=== PATIENT | female | born 1945 | race Caucasian/White ===

== ENCOUNTER 2023-02-14 14:26 | Emergency (ER) | payer MEDICARE, SELFPAY ==
[2023-02-14 14:31] VITALS: BP 175/62; PULSE 70; RESP 16; TEMP 36.6; O2SAT 92; BMI 23.3
--- NOTE | 2023-02-14 14:46 | ED.GENADULT ---
HPI - General Adult General Time Seen by Provider: 14:57 <Marielle Sandoval - Last Filed: 02/14/23 17:58> Date Seen: 02/14/23 <Marielle Jaime - Last Filed: 02/14/23 17:58> Chief complaint: Back Injury/Pain <Marielle [place] - Last Filed: 02/14/23 17:58> Stated complaint: Back pain <Marielle Jaime - Last Filed: 02/14/23 17:58> Time Seen by Provider: 02/14/23 14:48 <Marielle Jaime - Last Filed: 02/14/23 17:58> Source: patient and family <Marielle Jaime - Last Filed: 02/14/23 17:58> Mode of arrival: ambulatory <Marielle [place] - Last Filed: 02/14/23 17:58> Limitations: no limitations <Marielle [place] - Last Filed: 02/14/23 17:58> History of Present Illness HPI narrative: 77 yo female w/ a hx of osteopenia presents with 2 days of diffuse lower back pain that started the morning after she lifted a 50lb bag of salt. The low back pain is worst with movement, at rest currently it is a 2/10. Denies numbness or tingling of her legs, no weakness noted. No urinary or stool incontinence. She took 1500mg Tylenol and 200mg ibuprofen for the pain with minimal relief. Denies chest pain or palpitations. Denies burning or blood with urination. Her last BM was 2 hours ago and was of normal consistency without blood. No recent illnesses, fever, or chills. Note chronic baseline shortness of breath that she is getting evaluated by her PCP on Wednesday02/16/23, no change of breathing today. No recent falls or other trauma. No hx of prior back injuries. She is on alendronate for her osteopenia. <Marielle Jaime - Last Filed: 02/14/23 17:58> Related Data Allergies/adverse reactions: Allergies Allergy/AdvReac Type Severity Reaction Status Date / Time erythromycin base Allergy Severe Vomiting Verified 02/11/23 11:24 penicillin G Allergy Severe Convulsions Verified 02/11/23 11:24 amlodipine Allergy Intermediate Flushing Verified 02/11/23 11:25 and Edema hydrochlorothiazide Allergy Intermediate Facial Verified 02/11/23 11:25 Flushing and Edema lisinopril Allergy Intermediate Facial Verified 02/11/23 11:27 Flushing and Edema Sulfa (Sulfonamide Allergy Intermediate Hives Verified 02/11/23 11:24 Antibiotics) sulfamethoxazole Allergy Intermediate Rash Verified 02/11/23 11:24 tetracycline Allergy Intermediate Rash Verified 02/11/23 11:24 <Marielle [place] - Last Filed: 02/14/23 17:58> Review of Systems Status of ROS: Reports: 10 or more systems reviewed and unremarkable except as noted in History and below <Marielle [place] - Last Filed: 02/14/23 17:58> [facility] Medical History: Medical History History of adenomatous polyp of colon (2001) ?Z86.010 - Personal history of colonic polyps (ICD-10) History of benign breast biopsy ?Z98.890 - Other specified postprocedural states (ICD-10) Hypercholesterolemia ?E78.00 - Pure hypercholesterolemia, unspecified (ICD-10) Osteoporosis ?M81.0 - Age-related osteoporosis without current pathological fracture (ICD-10) Essential hypertension ?I10 - Essential (primary) hypertension (ICD-10) < - Last Filed: 02/14/23 17:58> Surgical History: Surgical History History of colonoscopy (11/25/11) ?Z98.890 - Other specified postprocedural states (ICD-10) History of section ?Z98.891 - History of uterine scar from previous surgery (ICD-10) History of appendectomy ?Z90.49 - Acquired absence of other specified parts of digestive tract (ICD-10) <Marielle Jaime - Last Filed: 02/14/23 17:58> Family History: Family History Mother COPD (chronic obstructive pulmonary disease) CHF (congestive heart failure) Dementia Father Leukemia High cholesterol Tachycardia Maternal Grandfather Diabetes Brother Retinal dot hemorrhage <Marielle [place] Last Filed: 02/14/23 17:58> Social History: Social History Smoking Status: Never smoker Do you use any of these nicotine containing products: None Second hand tobacco smoke exposure: Yes How often do you have a drink containing alcohol: monthly or less How many standard drinks containing alcohol do you have on a typical day: 1 or 2 How often do you have six or more drinks on one occasion: Never AUDIT-C Alcohol total score: 1 Non-prescribed substance use: denies use service: No <Marielle Pollackan Last Filed: 02/14/23 17:58> Exam Narrative: Exam Narrative: General: Pt is seated upright in bed in NAD. HEENT: PEERL Cardiac: Heart RRR, no M/R/G Resp: Lungs CTAB Neuro: 5/5 strength b/l LE, sensation intact throughout b/l LE MSK: No thoracic midline tenderness. There is diffuse tenderness of the lower back, most notably in the area b/l lateral to L2-L5. Paraspinal mucles hypertonic b/l. Skin: No rashes or ecchymosis noted <Marielle [place] Last Filed: 02/14/23 17:58> Const: Vital Signs, click to edit/add: Vital Signs - 24 hr 02/14/23 14:31 Temperature 97.8 F Pulse Rate [Pulse Oximeter] 70 Respiratory Rate 16 Blood Pressure [Ri ght Upper Arm] 175/62 H Pulse Oximetry 92 Oxygen Delivery Me thod Room Air <Marielle [place] Last Filed: 02/14/23 17:58> Vital Signs, click to edit/add: Vital Signs - 24 hr 02/14/23 14:31 Temperature 97.8 F Pulse Rate [Pulse Oximeter] 70 Respiratory Rate 16 Blood Pressure [Ri ght Upper Arm] 175/62 H Pulse Oximetry 92 Oxygen Delivery Me thod Room Air <Jada King MD - Last Filed: 02/14/23 18:02> Documenting provider has reviewed patient's vital signs: yes <Jada King MD - Last Filed: 02/14/23 18:02> Course Course ED Course: DDx inludes but is not limited to herniated disc, osteoporotic fracture of lumbar spine, lumbar stenosis, DDD, muscle spasm, muscle strain, pyelonephritis, cauda equina, and conus medullaris <[facility] Last Filed: 02/14/23 17:58> Vital Signs Vital signs: Initial Vital Signs Temperature 97.8 F 02/14/23 14:31 Temperature Source Temporal Artery Scan 02/14/23 14:31 Pulse Rate 70 02/14/23 14:31 Pulse Rhythm Regular 02/14/23 14:31 Respiratory Rate 16 02/14/23 14:31 Blood Pressure 175/62 H 02/14/23 14:31 Blood Pressure Mean 99 02/14/23 14:31 Blood Pressure Position Supine 02/14/23 14:31 Pulse Oximetry 92 02/14/23 14:31 Oxygen Delivery Method Room Air 02/14/23 14:31 Vital Signs Temperature 97.8 F 02/14/23 14:31 Pulse Rate 70 02/14/23 14:31 Respiratory Rate 16 02/14/23 14:31 Blood Pressure 175/62 H 02/14/23 14:31 Pulse Oximetry 92 02/14/23 14:31 Oxygen Delivery Method Room Air 02/14/23 14:31 Temperature 97.8 F 02/14/23 14:31 Pulse Rate 70 02/14/23 14:31 Respiratory Rate 16 02/14/23 14:31 Blood Pressure 175/62 H 02/14/23 14:31 Pulse Oximetry 92 02/14/23 14:31 Oxygen Delivery Method Room Air 02/14/23 14:31 [facility] Last Filed: 02/14/23 17:58> Initial Vital Signs Temperature 97.8 F 02/14/23 14:31 Temperature Source Temporal Artery Scan 02/14/23 14:31 Pulse Rate 70 02/14/23 14:31 Pulse Rhythm Regular 02/14/23 14:31 Respiratory Rate 16 02/14/23 14:31 Blood Pressure 175/62 H 02/14/23 14:31 Blood Pressure Mean 99 02/14/23 14:31 Blood Pressure Position Supine 02/14/23 14:31 Pulse Oximetry 92 02/14/23 14:31 Oxygen Delivery Method Room Air 02/14/23 14:31 Vital Signs Temperature 97.8 F 02/14/23 14:31 Pulse Rate 70 02/14/23 14:31 Respiratory Rate 16 02/14/23 14:31 Blood Pressure 175/62 H 02/14/23 14:31 Pulse Oximetry 92 02/14/23 14:31 Oxygen Delivery Method Room Air 02/14/23 14:31 Temperature 97.8 F 02/14/23 14:31 Pulse Rate 70 02/14/23 14:31 Respiratory Rate 16 02/14/23 14:31 Blood Pressure 175/62 H 02/14/23 14:31 Pulse Oximetry 92 02/14/23 14:31 Oxygen Delivery Method Room Air 02/14/23 14:31 <Jada King MD - Last Filed: 02/14/23 18:02> Medical Decision Making MDM Narrative Medical decision making narrative: 1-Lower Back Strain-Low back pain worse with movement without radiation into the legs or concerning sx of urinary or bowel incontinence or weakness. Likely muscle strain related to carrying 50lb bag. XR without evidence for fracture. Recommend Aleve or Ibuprofen prn, may also take tylenol but do NOT exceed 1000mg q6h. May also take Flexeril 5mg BID prn, do not drive after taking this or operate heavy machinery. 2-Discharge home, pt understands and agrees to the plan. She will follow up with PT for strengthening. She will return if she experiences numbness or tingling in her legs, weakness or incontinence of bowel or bladder. < Last Filed: 02/14/23 17:58> Medical Records Medical records reviewed: Yes I reviewed the patient's medical records < Last Filed: 02/14/23 17:58> Imaging Data XR Pelvis 1-View: Attestation: I have reviewed the pertinent imaging results. < Last Filed: 02/14/23 17:58> My impression: No acute pelvic fracture noted < - Last Filed: 02/14/23 17:58> Radiologist's impression: No acute findings. < Last Filed: 02/14/23 17:58> XR lumbar spine 2-3 V: My impression: No evidence for lumbar fracture, mild anterolisthesis of L4 on L5 noted. < Last Filed: 02/14/23 17:58> Radiologist's impression: 1. No acute findings. 2. Mild anterolisthesis of L4 on L5. 3. Spondylotic changes greatest at L5-S1. < Last Filed: 02/14/23 17:58> Discharge Plan Discharge Clinical Impression: Strain of lumbar region Qualifiers: Encounter type: initial encounter Qualified Code(s): S39.012A - Strain of muscle, fascia and tendon of lower back, initial encounter <Marielle Sandoval - Last Filed: 02/14/23 17:58> Patient Disposition: Home, Self-Care <Marielle Sandoval - Last Filed: 02/14/23 17:58> Condition: Stable <Marielle Sandoval - Last Filed: 02/14/23 17:58> Additional Instructions: Flexeril 5mg or 1/2 tab q8-12h prn, may use ibuprofen q8h prn or Aleve 600 mg BID prn. May also use tylenol, do not exceed 1000 mg q6h prn. May apply ice for the first 72 hours, after that may apply heat. Recommend following up with PT for restrengthening exercises. Please return to the ED if you experience numbness/tingling of the legs, muscle weakness, bowel or bladder incontinence. <Marielle Sandoval - Last Filed: 02/14/23 17:58> Activity Level: No Restrictions <Marielle Sandoval - Last Filed: 02/14/23 17:58> No Restrictions <Jada King MD - Last Filed: 02/14/23 18:02> Discharge Diet: Regular <Marielle Sandoval - Last Filed: 02/14/23 17:58> Regular <Jada King MD - Last Filed: 02/14/23 18:02> Follow Up/Referrals: Anni Gaviria MD [Primary Care Provider] - <Marielle Sandoval - Last Filed: 02/14/23 17:58> Stand Alone Forms: MyHealth Info Instructions <Marielle Sandoval - Last Filed: 02/14/23 17:58>
--- NOTE | 2023-02-14 15:09 | CRLHL7_ITS ---
For Patients: As a result of the Century Cures Act, medical imaging exams and procedure reports are released immediately into your electronic medical record. You may view this report before your referring provider. If you have questions, please contact your health care provider. INDICATION: Back pain. TECHNIQUE: Lumbar spine 3 views. COMPARISON: None. FINDINGS: There are 5 lumbar type vertebral bodies. Mild anterolisthesis of L4 on L5. No acute fracture identified. Vertebral body heights are well maintained. Spondylotic changes including minimal endplate spurring, lower lumbar facet arthropathy, and disc space narrowing at L5-S1. The sacroiliac joints are normal in appearance. Soft tissues are unremarkable. IMPRESSION: 1. No acute findings. 2. Mild anterolisthesis of L4 on L5. 3. Spondylotic changes greatest at L5-S1. Dictated by Mariposa Bundy MD @ 02/14/2023 4:10:35 PM (Electronically Signed)
--- NOTE | 2023-02-14 15:11 | CRLHL7_ITS ---
For Patients: As a result of the Cures Act, medical imaging exams and procedure reports are released immediately into your electronic medical record. You may view this report before your referring provider. If you have questions, please contact your health care provider. INDICATION: Back pain. TECHNIQUE: AP pelvis. COMPARISON: None. FINDINGS: No acute fracture identified. The hips appear normally aligned with preserved joint spaces. The sacroiliac joints are normal in appearance. Degenerative changes of the lower lumbar spine. Soft tissues are unremarkable. IMPRESSION: No acute findings. Dictated by Mariposa Bundy MD @ 02/14/2023 4:12:09 PM (Electronically Signed)
== END 2023-02-14 17:08 | disposition home or self-care (01) ==
PROVIDERS: Emergency Provider Family Medicine; PCP Family Medicine
DX: S39.012A Strain of muscle, fascia and tendon of lower back, initial encounter (principal)
CPT/HCPCS: 72100; 72170; 99283; 99284

== ENCOUNTER 2023-03-01 10:45 | Outpatient (RCR) | payer MEDICARE, SELFPAY ==
--- NOTE | 2023-02-15 13:53 | PT.OPEX ---
[facility] Outpatient Eval Start: 02/15/23 12:33 Freq: Status: Active Protocol: Document 02/15/23 12:34 CRP (Rec: 02/15/23 13:48 CRP [id number]) E-signed By Baldo [facility] Outpatient Evaluation Insurance Information Recert Due Date 05/16/23 Insurance Name Medicare B Medical Diagnosis Acute LBP Treating Diagnosis LBP Back stiffness Referring MD Dr King Subjective Subjective Wednesday morning could not even get up out of bed without severe pain. Thinks it was from lifting salt bags on Wednesday. Pain was low back on both sides. No pain into legs . No numbness or tingling. Pt reports that Wednesday she took it easy. Wednesday morning was again really painful and she did go into the ER. Had Xray that was negative. Was prescribed muscle relaxer and is taking Aleve. Pt notes that by the end of Wednesday her pain was about 3/10 and currently 2/10. SItting in a soft chair can cause problems. Sitting in supportive chair is fine. Walking is the best. SLeep can be painful. Bending and lifting cause the most pain. Has had minor back soreness in the past but usually would clear up. Pain Comments 2/10 Current Work Status Retired Objective Range of Motion Trunk ROM Flex WNL Ext mod dec Bilat SB min dec Rotation WNL bilat Hip ROM WNL bilat Strength MMT Myotomes WNL TrA contraction - shows only minor deficiency Palpation Increased lumbar paraspinal tone Posture Active ext pattern Other/Pertinent Objective Segmental testing - Painful UPAs bilat L3-5 grade 3- SLR testing WNL Assessment Assessment/Impression Pt presents to the clinic with signs and sxs consistent with lumbar spine acute nociceptive pain mechanisms secondary to flexion related strain. Pt shows painful loss of lumbar flexion ROM, poor lumbopelvic motor control, and painful hypomobility of lumbar spine segments. PT will incorporate ther ex, nm lorrie, manual ther, ther act and pt education to decrease pain and improve functional mobility. 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 Pt will be 100% independent with HEP in 8 weeks 2. Pt will tend to her dog without c.o LBP in 10 weeks 3. 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 without pain in 12 weeks Coordination/Communication With Referral Source Treatment Plan/Direct Interventions Joint Mobilization,Manual Therapy,Neuromuscular Re-ed, Self-Care/Home Management, Therapeutic Activities, Therapeutic Exercises Frequency/Duration 1-2x/wk for 12 weeks Patient Will Be Discharged From Therapy Completion of LTG(s),Skills Plateau,Independent w/HEP, Independently Progressing Evaluation Billing Untimed Code Treatment Minutes 30 Complexity Moderate Certification Information Initial Certification Date 02/15/23 Ending Certification Date 05/16/23 Provider Signature Shows Agreement With POC & Medical Necessity Physician Signature & Date Requested Please Sign/Date Here Physician Comment/Change : Physician NPI Number #
== END 2023-06-16 08:35 | disposition home or self-care (01) ==
PROVIDERS: PCP Family Medicine; Visit Provider Family Medicine
DX: M54.50 Low back pain, unspecified (principal); M25.69 Stiffness of other specified joint, not elsewhere classified; Z51.89 Encounter for other specified aftercare
CPT/HCPCS: 97110; 97140; 97162

== ENCOUNTER 2023-04-30 07:30 | Outpatient (CLI) | payer MEDICARE, SELFPAY | END 2023-04-30 07:31 | disposition home or self-care (01) | LOC: NFLDREF 05-03 10:58 | PROVIDERS: PCP Family Medicine; Referring Provider Family Medicine; Visit Provider Family Medicine | DX: E78.00 Pure hypercholesterolemia, unspecified (principal); I10 Essential (primary) hypertension; M81.0 Age-related osteoporosis without current pathological fracture; Z13.29 Encounter for screening for other suspected endocrine disorder | CPT/HCPCS: 80053; 80061; 82306; 84443 ==

== ENCOUNTER 2023-05-06 07:17 | Outpatient (CLI) | payer MEDICARE, SELFPAY ==
[2023-05-06 11:07] LABS: Hemoglobin* 21.4 gm/dL (12.0-16.0)
== END 2023-05-06 07:18 | disposition home or self-care (01) ==
PROVIDERS: PCP Family Medicine; Visit Provider Family Medicine
DX: D58.2 Other hemoglobinopathies (principal); D75.1 Secondary polycythemia; R74.01 Elevation of levels of liver transaminase levels; M81.0 Age-related osteoporosis without current pathological fracture; I10 Essential (primary) hypertension
CPT/HCPCS: 81256; 81270; 82728; 83540; 83550; 85018; 99195

== ENCOUNTER 2023-05-11 09:23 | Outpatient (RCR) | payer MEDICARE, SELFPAY ==
[2023-05-09 08:37] LABS: Hemoglobin* 18.6 gm/dL (12.0-16.0)
[2023-05-10 08:46] LABS: Hemoglobin* 16.7 gm/dL (12.0-16.0)
[2023-05-11 09:35] LABS: Hemoglobin* 16.6 gm/dL (12.0-16.0)
== END 2024-04-29 08:08 | disposition home or self-care (01) ==
LOC: LAB 09:23
PROVIDERS: PCP Family Medicine; Visit Provider Family Medicine
DX: D58.2 Other hemoglobinopathies (principal)
CPT/HCPCS: 36415; 85018; 99195

== ENCOUNTER 2023-05-18 08:35 | Outpatient (CLI) | payer MEDICARE, SELFPAY ==
[2023-05-18 05:08] VITALS: BP 147/63; PULSE 61; RESP 16; O2SAT 97
[2023-05-18 09:27] VITALS: BMI 22.6
[2023-05-18 09:29] VITALS: BP 169/76; PULSE 67; RESP 16; O2SAT 98
[2023-05-18 10:01] LABS: Basophils Absolute Auto 0.12 K/uL (0.00-0.30); Basophils Percent Auto 1.1 % (0.0-3.0); Eosinophils Absolute Auto 0.23 K/uL (0.00-0.50); Eosinophils Percent Auto 2.1 % (0.0-7.0); Hematocrit 49.9 % (33.0-51.0); Hemoglobin* 15.7 gm/dL (12.0-16.0); Immature Granulocytes Abs Auto 0.02 K/uL (0.00-0.30); Immature Granulocytes Pct Auto 0.2 %; Immature Reticulocyte Fraction 16.9 % (3.0-15.9); Mean Corpuscular HGB Conc 32 gm/dL (32-36); Mean Corpuscular Hemoglobin 24 pg (26-34); Mean Corpuscular Volume 77 fL (80-100); Neutrophils Percent Auto 75.6 % (42.0-72.0); Platelet Count* 644 K/uL (140-440); RDW Coefficient of Variation % 17.3 % (11.5-15.5); Red Blood Count 6.49 m/uL (4.00-5.20); Reticulocyte Hemoglobin Equivi 18.7 pg (29.0-35.0); Reticulocyte Percent 1.6 % (0.5-2.0); White Blood Count* 10.79 K/uL (4.50-11.00)
[2023-05-18 10:05] LABS: Slide Review Reflex No
[2023-05-18 10:45] VITALS: BP 144/81; PULSE 67; RESP 16; O2SAT 96
--- NOTE | 2023-05-18 10:46 | W.ANESCHARGE ---
Anesthesia Charges Start Date/Time Anesthesia Start Date: 05/18/23 Anesthesia Start Time: 10:27 Stop Date/Time Anesthesia Stop Date: 05/18/23 Anesthesia Stop Time: 10:45
[2023-05-18 10:55] VITALS: BP 148/69; PULSE 60; RESP 16; O2SAT 97
== END 2023-05-18 11:16 | disposition home or self-care (01) ==
LOC: OP CLINIC 08:36
PROVIDERS: PCP Family Medicine; Visit Provider Internal Medicine Hematology & Oncology
DX: D45 Polycythemia vera (principal)
CPT/HCPCS: 01112; 36415; 38222; 81450; 85025; 85045; 88305; 88311; 88313; 88342; J1644; J2001; J2704

== ENCOUNTER 2023-05-19 08:38 | Outpatient (CLI) | payer MEDICARE, SELFPAY ==
--- NOTE | 2023-05-19 09:15 | MM_ITS ---
Patient: JENNIFER LESTER Facility:?[facility] Patient ID:?[id number] Site Patient ID:?[id number] Site :?1945 Study:?XRay-Breast Bilateral 3D W/CAD-05/19/2023 9:59:22 AM Ordering Physician:Renato Final Report: BILATERAL SCREENING MAMMOGRAM WITH COMPUTER-AIDED DETECTION AND TOMOSYNTHESIS TECHNIQUE: CC and MLO views were obtained. These mammographic images have been obtained using full-field digital technique. These mammographic images were interpreted with the benefit of computer-aided detection. Breast Tomosynthesis was used in this interpretation. COMPARISON FILM: No priors available. FINDINGS: The breasts are heterogeneously dense, which may obscure small masses IMPRESSION: There is no radiographic evidence for malignancy. ASSESSMENT: BI-RADS Category 2: Benign RECOMMENDATION: Routine screening mammogram in 1 year. A lay language report of this examination will be provided to the patient. Juan Chavis M.D. Diagnostic Radiologist [email or web address] R: 06/08/2023 Transcribed: 10:04 a.m. PEDRO/Dictated by: Juan Chavis MD @ 06/08/2023 12:08:00 PM Signed by:?Juan Chavis MD @06/14/2023 12:19:46 PM (Electronic Signature)
== END 2023-05-19 08:39 | disposition home or self-care (01) ==
LOC: MAMMO 08:39
PROVIDERS: PCP Family Medicine; Visit Provider Family Medicine
DX: Z12.31 Encounter for screening mammogram for malignant neoplasm of breast (principal); R92.2 Inconclusive mammogram
CPT/HCPCS: 77063; 77067

== ENCOUNTER 2023-05-19 13:58 | Outpatient (CLI) | payer MEDICARE, SELFPAY ==
--- NOTE | 2023-05-19 14:30 | XR_ITS ---
Patient: JENNIFER LESTER Facility:?[facility] Patient ID:?[id number] Site Patient ID:?[id number]. Site :?1945 Study:?DEXA-Bone Density DEXA - Spine/Hips-05/19/2023 2:33:53 PM Ordering Physician:CAIN Final Report: DXA BONE MINERAL DENSITY STUDY Reason for exam: Osteoporosis. Current height (inches): 65.5 Weight (lbs.): 140.0 Menopause age: 44 Ethnicity: White 1. Have you had a previous hip or vertebral fracture? No. 2. Have you had any fractures during your adult life which did not result from significant trauma (e.g., auto accident)? No. 3. Did either of your parents have a hip fracture? No. 4. Do you smoke? No. 5. Have you ever taken Glucocorticoids? No. 6. Do you have rheumatoid arthritis? No. 7. Do you have secondary osteoporosis? No. 8. Do you drink 3 or more alcoholic drinks per day? No. 9. Are you being treated for osteoporosis? Yes. 10. Have you ever taken any of the following medications: Actonel, Evista, Fosamax, Miacalcin, Reclast, Boniva, Forteo, HRT (i.e., estrogen/hormone therapy), Protelos, Prolia, Vitamin D, Calcium, other ? please specify. ANSWER: Yes; Fosamax, vitamin D, calcium. 11. Do you have any of the following medical conditions: Anorexia or bulimia, asthma or emphysema, end stage renal disease, hyperparathyroidism, any seizure disorders, cancer, inflammatory bowel diseases, hysterectomy, other ? please specify. ANSWER: No. 12. What was your maximum height (inches)? 66. 13. Do you perform weightbearing exercise regularly? No. 14. Do you regularly consume dairy products? Yes. 15. Do you drink caffeinated beverages? Yes. 16. At what age did your period start? 13. 17. Are you premenopausal? No. 18. How many full-term pregnancies have you had? 1. 19. Have you ever missed your period for more than 6 months in a row (not including or menopause)? No. TECHNIQUE: Bone mineral density study was performed using the [employer]. FINDINGS: The results of the study expressed as bone mineral density (BMD) are as follows: Lumbar Spine L1 to L4: BMD: 0.900 g/cm2. T-score: -1.1. Z-score: 1.4. Neck Left: BMD: 0.777 g/cm2. T-score: -0.7. Z-score: 1.5. Right: BMD: 0.757 g/cm2. T-score: -0.8. Z-score: 1.3. Total Left: BMD: 0.968 g/cm2. T-score: 0.2. Z-score: 2.1. Right: BMD: 0.979 g/cm2. T-score: 0.3. Z-score: 2.2. IMPRESSION: Osteopenia. QUIN HERNANDEZ M.D. Diagnostic Radiologist [email or web address] DSM/mercedes D& Transcribed: 3:[address]/Dictated by: Quin Hernandez MD @ 05/21/2023 12:00:00 PM Signed by:Jeffrey Hernandez MD @05/21/2023 3:33:19 PM (Electronic Signature)
== END 2023-05-19 13:59 | disposition home or self-care (01) ==
LOC: RAD 13:59
PROVIDERS: PCP Family Medicine; Visit Provider Family Medicine
DX: M81.0 Age-related osteoporosis without current pathological fracture (principal); M85.88 Other specified disorders of bone density and structure, other site
CPT/HCPCS: 77080

== ENCOUNTER 2023-05-27 08:19 | Outpatient (CLI) | payer MEDICARE, SELFPAY ==
--- NOTE | 2023-05-27 08:30 | PE_ITS ---
[facility] [address] [address] Phone:?[phone] Fax:?[phone] Referring Physician Information: Lara Parker M.D. [address] [address] Phone:?[phone] Fax:?[phone] Patient:Dallas Griffith D.O.B:?1945 Sex:?Female Phone:?[phone] [facility] MRN:?[id number] Exam Date:?05/27/2023 EXAM: PET/CT SCAN MID-ORBITS TO PROXIMAL THIGHS CLINICAL INFORMATION: Polycythemia Vera TECHNICAL INFORMATION: Spiral acquisition of data was obtained from the mid orbits to the proximal thighs with reconstruction of 3.75 mm thick images at 3.[address] data was used for attenuation correction. PET scanning was performed through the same anatomic range 54 minutes following administration of 10.5 mCi of 18-FDG delivered intravenously. The patient's glucose at the time of the injection was 92 mg/dL. PET, CT and PET/CT fusion images are interpreted using a computer viewing workstation. SUV max liver 2.76; BMI normalization method. INTERPRETATION: Head and Neck: Physiologic intracranial uptake. No adenopathy or abnormal uptake. Chest: No lung nodule or infiltrate. No pleural or pericardial effusion. Abdomen, Pelvis and Proximal Thighs: Splenomegaly measuring 13.0 x 11.7 x 8.2 cm. No focal lesion or abnormal radiotracer uptake. No liver lesion. No bile duct dilatation. The gallbladder, pancreas, adrenal glands and kidneys are unremarkable. Normal caliber abdominal aorta with minimal atherosclerotic calcification. No pathologic mesenteric or retroperitoneal adenopathy. No gastric or small bowel abnormality. No pelvic mass, adenopathy, hernia or fluid collection. CONCLUSION: 1. Splenomegaly without focal lesion or abnormal FDG uptake. No additional disease specific radiotracer uptake is identified. Electronically signed on 05/28/2023 12:52:00 PM by Mariusz Henson M.D.
== END 2023-05-27 08:20 | disposition home or self-care (01) ==
LOC: RAD 08:21
PROVIDERS: PCP Family Medicine; Visit Provider Internal Medicine Hematology & Oncology
DX: D45 Polycythemia vera (principal)
CPT/HCPCS: 78815; A9552

== ENCOUNTER 2023-08-18 13:00 | Outpatient (RCR) | payer MEDICARE, SELFPAY ==
[2023-05-12 12:15] LABS: Basophils Percent Auto 0.9 % (0.0-3.0); Eosinophils Percent Auto 2.2 % (0.0-7.0); Hematocrit 50.9 % (33.0-51.0); Immature Granulocytes Pct Auto 0.2 %; Lymphocytes Percent Auto 22.1 % (20-44); Mean Corpuscular HGB Conc 31 gm/dL (32-36); Mean Corpuscular Hemoglobin 25 pg (26-34); Mean Corpuscular Volume 79 fL (80-100); Monocytes Percent Auto 4.1 % (0.0-11.0); Neutrophils Percent Auto 70.5 % (42.0-72.0); Platelet Count* 654 K/uL (140-440); RDW Coefficient of Variation % 18.3 % (11.5-15.5); Red Blood Count 6.45 m/uL (4.00-5.20); White Blood Count* 12.97 K/uL (4.50-11.00)
[2023-05-12 12:22] LABS: Slide Review Reflex No
[2023-05-12 12:50] LABS: Albumin* 4.1 g/dL (3.3-5.0); Chloride* 101 mmol/L (96-114); Potassium* 4.1 mmol/L (3.6-5.1); Sodium* 138 mmol/L (135-149)
[2023-05-12 12:52] LABS: Anion Gap 6 mEq/L (7-15); Bilirubin Total* 0.6 mg/dL (0.1-1.5); Carbon Dioxide* 31 mmol/L (20-32); Creatinine* 0.7 mg/dL (0.5-1.5); Est. Creatinine Clearance* 41.33; Estimated Glomerular Filt Rate 90 ml/min
[2023-05-12 12:53] LABS: Alanine Aminotransferase* 17 U/L (4-35); Alkaline Phosphatase* 60 U/L (40-150); Aspartate Amino Transferase* 34 U/L (12-35); Blood Urea Nitrogen* 20 mg/dL (7-30); Calcium* 9.8 mg/dL (8.4-10.6); Glucose* 97 mg/dL (60-115); Lactate Dehydrogenase* 177 U/L (120-246); Total Protein* 6.4 g/dL (6.0-8.3)
[2023-05-12 13:00] LABS: Immature Reticulocyte Fraction 18.1 % (3.0-15.9); Reticulocyte Hemoglobin Equivi 21.6 pg (29.0-35.0); Reticulocyte Percent 1.8 % (0.5-2.0); Reticulocytes Absolute 0.12 # (0.03-0.08)
[2023-05-13 15:08] LABS: Erythropoietin <1 mU/mL (4-27)
--- NOTE | 2023-05-17 10:28 | ONC.NURNOTE ---
handouts given on hydrea, self care at home and managment of fatigue discussed possible side effects- what to do if have fever and calling with any changes in concerns patient with no questions plans to start today LOTTIE consents reviewed and signed
[2023-05-17 10:29] VITALS: BP 161/78
--- NOTE | 2023-05-19 14:36 | ONC.NURNOTE ---
New Medication tolerance check in for hydrea- message left on VM to call with follow up
--- NOTE | 2023-05-26 08:40 | ONC.NURNOTE ---
Called pt to check in on side effects after beginning Hydrea. She notes that she takes it in the evening after supper and has not noticed any side effects. She has questions about the Pet CT prep diet; reviewed recommendations.
[2023-06-01 11:23] LABS: Basophils Absolute Auto 0.08 K/uL (0.00-0.30); Basophils Percent Auto 0.8 % (0.0-3.0); Eosinophils Absolute Auto 0.24 K/uL (0.00-0.50); Eosinophils Percent Auto 2.5 % (0.0-7.0); Hematocrit 49.8 % (33.0-51.0); Hemoglobin* 15.6 gm/dL (12.0-16.0); Immature Granulocytes Abs Auto 0.02 K/uL (0.00-0.30); Immature Granulocytes Pct Auto 0.2 %; Lymphocytes Absolute Auto 2.16 K/uL (0.90-2.90); Lymphocytes Percent Auto 22.7 % (20-44); Mean Corpuscular HGB Conc 31 gm/dL (32-36); Mean Corpuscular Hemoglobin 24 pg (26-34); Mean Corpuscular Volume 75 fL (80-100); Monocytes Percent Auto 2.5 % (0.0-11.0); Neutrophils Absolute Auto 6.78 K/uL (1.7-7.0); Neutrophils Percent Auto 71.3 % (42.0-72.0); Platelet Count* 207 K/uL (140-440); RDW Coefficient of Variation % 17.2 % (11.5-15.5); Red Blood Count 6.63 m/uL (4.00-5.20); White Blood Count* 9.52 K/uL (4.50-11.00)
[2023-06-01 11:29] LABS: Slide Review Reflex No
[2023-06-15 10:02] LABS: Basophils Percent Auto 1.3 % (0.0-3.0); Eosinophils Percent Auto 2.1 % (0.0-7.0); Hematocrit 53.8 % (33.0-51.0); Hemoglobin* 16.7 gm/dL (12.0-16.0); Immature Granulocytes Pct Auto 0.2 %; Mean Corpuscular HGB Conc 31 gm/dL (32-36); Mean Corpuscular Hemoglobin 24 pg (26-34); Mean Corpuscular Volume 76 fL (80-100); Monocytes Percent Auto 4.2 % (0.0-11.0); Neutrophils Percent Auto 74.2 % (42.0-72.0); Platelet Count* 475 K/uL (140-440); Red Blood Count 7.07 m/uL (4.00-5.20); White Blood Count* 12.16 K/uL (4.50-11.00)
[2023-06-15 10:09] LABS: Slide Review Reflex No
[2023-06-16 11:30] LABS: Albumin* 4.6 g/dL (3.3-5.0); Chloride* 101 mmol/L (96-114)
[2023-06-16 11:31] LABS: Potassium* 4.9 mmol/L (3.6-5.1); Sodium* 137 mmol/L (135-149)
[2023-06-16 11:33] LABS: Anion Gap 7 mEq/L (7-15); Aspartate Amino Transferase* 38 U/L (12-35); Bilirubin Total* 0.5 mg/dL (0.1-1.5); Carbon Dioxide* 29 mmol/L (20-32); Creatinine* 0.6 mg/dL (0.5-1.5); Est. Creatinine Clearance* 41.33; Estimated Glomerular Filt Rate 93 ml/min; Total Protein* 7.3 g/dL (6.0-8.3)
[2023-06-16 11:34] LABS: Alanine Aminotransferase* 15 U/L (4-35); Alkaline Phosphatase* 85 U/L (40-150); Blood Urea Nitrogen* 23 mg/dL (7-30); Calcium* 9.9 mg/dL (8.4-10.6); Glucose* 83 mg/dL (60-115)
--- NOTE | 2023-06-17 11:31 | ONC.NURNOTE ---
Lab results reviewed by Dr Parker and called to Lisa dose change reviewed- to increase Hydrea to 2 tabs 2 days/wk and 1 tab 5d/wk Lisa will take 2 tabs on / next appts reviewed Lisa reports no concerns about side effects
[2023-06-29 09:47] LABS: Eosinophils Absolute Auto 0.22 K/uL (0.00-0.50); Eosinophils Percent Auto 2.3 % (0.0-7.0); Hematocrit 49.7 % (33.0-51.0); Hemoglobin* 15.5 gm/dL (12.0-16.0); Immature Granulocytes Abs Auto 0.01 K/uL (0.00-0.30); Immature Granulocytes Pct Auto 0.1 %; Lymphocytes Absolute Auto 2.39 K/uL (0.90-2.90); Lymphocytes Percent Auto 24.6 % (20-44); Mean Corpuscular HGB Conc 31 gm/dL (32-36); Mean Corpuscular Hemoglobin 24 pg (26-34); Mean Corpuscular Volume 75 fL (80-100); Monocytes Percent Auto 3.4 % (0.0-11.0); Neutrophils Absolute Auto 6.66 K/uL (1.7-7.0); Neutrophils Percent Auto 68.6 % (42.0-72.0); Platelet Count* 116 K/uL (140-440); RDW Coefficient of Variation % 18.9 % (11.5-15.5); White Blood Count* 9.71 K/uL (4.50-11.00)
[2023-06-29 10:10] LABS: Slide Review Reflex No
[2023-07-08 08:58] LABS: Basophils Absolute Auto 0.06 K/uL (0.00-0.30); Basophils Percent Auto 0.6 % (0.0-3.0); Eosinophils Absolute Auto 0.22 K/uL (0.00-0.50); Eosinophils Percent Auto 2.2 % (0.0-7.0); Hematocrit 48.1 % (33.0-51.0); Immature Granulocytes Abs Auto 0.03 K/uL (0.00-0.30); Immature Granulocytes Pct Auto 0.3 %; Lymphocytes Percent Auto 16.8 % (20-44); Mean Corpuscular HGB Conc 31 gm/dL (32-36); Mean Corpuscular Hemoglobin 24 pg (26-34); Mean Corpuscular Volume 76 fL (80-100); Monocytes Percent Auto 6.3 % (0.0-11.0); Neutrophils Percent Auto 73.8 % (42.0-72.0); Platelet Count* 111 K/uL (140-440); RDW Coefficient of Variation % 20.1 % (11.5-15.5); White Blood Count* 9.83 K/uL (4.50-11.00)
[2023-07-08 09:02] LABS: Slide Review Reflex No
[2023-08-13 08:34] LABS: Basophils Absolute Auto 0.04 K/uL (0.00-0.30); Basophils Percent Auto 0.6 % (0.0-3.0); Eosinophils Percent Auto 3.2 % (0.0-7.0); Hematocrit 48.7 % (33.0-51.0); Hemoglobin* 15.7 gm/dL (12.0-16.0); Lymphocytes Absolute Auto 1.44 K/uL (0.90-2.90); Lymphocytes Percent Auto 22.9 % (20-44); Mean Corpuscular HGB Conc 32 gm/dL (32-36); Mean Corpuscular Hemoglobin 26 pg (26-34); Mean Corpuscular Volume 81 fL (80-100); Neutrophils Absolute Auto 4.17 K/uL (1.7-7.0); Neutrophils Percent Auto 66.3 % (42.0-72.0); Platelet Count* 192 K/uL (140-440); RDW Coefficient of Variation % 26.7 % (11.5-15.5); Red Blood Count 6.05 m/uL (4.00-5.20); White Blood Count* 6.29 K/uL (4.50-11.00)
[2023-08-13 08:36] LABS: Slide Review Reflex No
== END 2023-11-08 23:59 | disposition home or self-care (01) ==
LOC: CCIC 13:00
PROVIDERS: PCP Family Medicine; Referring Provider Family Medicine; Visit Provider Internal Medicine Hematology & Oncology
DX: D58.2 Other hemoglobinopathies (principal); D75.1 Secondary polycythemia; D45 Polycythemia vera; R05.9 Cough, unspecified; I10 Essential (primary) hypertension
CPT/HCPCS: 36415; 80053; 82668; 83615; 85025; 85045; 99202; 99205; 99213; 99214; 99215; G0463

== ENCOUNTER 2024-04-10 13:30 | Outpatient (RCR) | payer MEDICARE, SELFPAY ==
[2023-11-17 08:15] LABS: Basophils Absolute Auto 0.07 K/uL (0.00-0.30); Basophils Percent Auto 0.9 % (0.0-3.0); Eosinophils Absolute Auto 0.13 K/uL (0.00-0.50); Eosinophils Percent Auto 1.7 % (0.0-7.0); Hematocrit 40.5 % (33.0-51.0); Immature Granulocytes Abs Auto 0.01 K/uL (0.00-0.30); Immature Granulocytes Pct Auto 0.1 %; Lymphocytes Absolute Auto 2.11 K/uL (0.90-2.90); Lymphocytes Percent Auto 28.3 % (20-44); Mean Corpuscular HGB Conc 35 gm/dL (32-36); Mean Corpuscular Hemoglobin 35 pg (26-34); Mean Corpuscular Volume 101 fL (80-100); Monocytes Percent Auto 4.3 % (0.0-11.0); Neutrophils Absolute Auto 4.82 K/uL (1.7-7.0); Neutrophils Percent Auto 64.7 % (42.0-72.0); Platelet Count* 287 K/uL (140-440); RDW Coefficient of Variation % 12.9 % (11.5-15.5); Red Blood Count 4.03 m/uL (4.00-5.20); White Blood Count* 7.46 K/uL (4.50-11.00)
[2023-11-17 08:17] LABS: Slide Review Reflex No
[2023-11-17 08:31] LABS: Albumin* 4.5 g/dL (3.3-5.0); Chloride* 103 mmol/L (96-114); Sodium* 138 mmol/L (135-149)
[2023-11-17 08:33] LABS: Creatinine* 0.8 mg/dL (0.5-1.5); Estimated Glomerular Filt Rate 76 ml/min
[2023-11-17 08:34] LABS: Alanine Aminotransferase* 16 U/L (4-35); Alkaline Phosphatase* 63 U/L (40-150); Anion Gap 6 mEq/L (7-15); Aspartate Amino Transferase* 30 U/L (12-35); Bilirubin Total* 0.8 mg/dL (0.1-1.5); Blood Urea Nitrogen* 24 mg/dL (7-30); Calcium* 9.4 mg/dL (8.4-10.6); Carbon Dioxide* 29 mmol/L (20-32); Glucose* 87 mg/dL (60-115); Lactate Dehydrogenase* 205 U/L (120-246); Total Protein* 6.8 g/dL (6.0-8.3)
[2023-11-30 12:15] VITALS: BP 173/79
[2023-11-30 13:05] VITALS: BP 153/76
[2023-11-30 14:15] VITALS: BP 132/63
[2024-01-31 08:34] LABS: Basophils Absolute Auto 0.06 K/uL (0.00-0.30); Basophils Percent Auto 0.8 % (0.0-3.0); Eosinophils Percent Auto 1.3 % (0.0-7.0); Hematocrit 42.3 % (33.0-51.0); Hemoglobin* 14.6 gm/dL (12.0-16.0); Immature Granulocytes Abs Auto 0.01 K/uL (0.00-0.30); Immature Granulocytes Pct Auto 0.1 %; Lymphocytes Absolute Auto 2.24 K/uL (0.90-2.90); Lymphocytes Percent Auto 29.1 % (20-44); Mean Corpuscular HGB Conc 35 gm/dL (32-36); Mean Corpuscular Hemoglobin 34 pg (26-34); Mean Corpuscular Volume 100 fL (80-100); Neutrophils Absolute Auto 4.83 K/uL (1.7-7.0); Neutrophils Percent Auto 62.7 % (42.0-72.0); Platelet Count* 286 K/uL (140-440); RDW Coefficient of Variation % 12.5 % (11.5-15.5); Red Blood Count 4.24 m/uL (4.00-5.20)
[2024-01-31 08:35] LABS: Slide Review Reflex No
--- NOTE | 2024-01-31 09:59 | ONC.NURNOTE ---
Labs reviewed and called to patient as stable next appts due in 03/2024 reports no concerns with current dosing 1000 mg /Th 500 mg other 5 days
[2024-04-10 13:38] LABS: Basophils Absolute Auto 0.07 K/uL (0.00-0.30); Basophils Percent Auto 0.9 % (0.0-3.0); Eosinophils Absolute Auto 0.12 K/uL (0.00-0.50); Eosinophils Percent Auto 1.6 % (0.0-7.0); Hematocrit 39.4 % (33.0-51.0); Hemoglobin* 13.8 gm/dL (12.0-16.0); Immature Granulocytes Abs Auto 0.01 K/uL (0.00-0.30); Immature Granulocytes Pct Auto 0.1 %; Lymphocytes Absolute Auto 2.27 K/uL (0.90-2.90); Lymphocytes Percent Auto 29.9 % (20-44); Mean Corpuscular HGB Conc 35 gm/dL (32-36); Mean Corpuscular Hemoglobin 35 pg (26-34); Mean Corpuscular Volume 99 fL (80-100); Monocytes Percent Auto 5.3 % (0.0-11.0); Neutrophils Absolute Auto 4.71 K/uL (1.7-7.0); Neutrophils Percent Auto 62.2 % (42.0-72.0); Platelet Count* 292 K/uL (140-440); White Blood Count* 7.58 K/uL (4.50-11.00)
[2024-04-10 13:40] LABS: Slide Review Reflex No
[2024-04-10 14:01] LABS: Albumin* 4.4 g/dL (3.3-5.0); Chloride* 100 mmol/L (96-114); Sodium* 136 mmol/L (135-149)
[2024-04-10 14:02] LABS: Potassium* 3.7 mmol/L (3.6-5.1)
[2024-04-10 14:04] LABS: Alkaline Phosphatase* 64 U/L (40-150); Anion Gap 6 mEq/L (7-15); Aspartate Amino Transferase* 24 U/L (12-35); Bilirubin Total* 0.4 mg/dL (0.1-1.5); Blood Urea Nitrogen* 20 mg/dL (7-30); Carbon Dioxide* 30 mmol/L (20-32); Creatinine* 0.9 mg/dL (0.5-1.5); Est. Creatinine Clearance* 40.68; Estimated Glomerular Filt Rate 66 ml/min; Lactate Dehydrogenase* 195 U/L (120-246); Total Protein* 6.6 g/dL (6.0-8.3)
[2024-04-10 14:05] LABS: Alanine Aminotransferase* 16 U/L (4-35); Calcium* 9.4 mg/dL (8.4-10.6); Glucose* 124 mg/dL (60-115)
== END 2024-05-15 23:59 | disposition home or self-care (01) ==
LOC: CCIC 13:30
PROVIDERS: PCP Family Medicine; Referring Provider Family Medicine; Visit Provider Internal Medicine Hematology & Oncology
DX: D58.2 Other hemoglobinopathies (principal); D75.1 Secondary polycythemia; D45 Polycythemia vera; I10 Essential (primary) hypertension; Z79.82 Long term (current) use of aspirin; Z86.73 Personal history of transient ischemic attack (TIA), and cerebral infarction without residual deficits
CPT/HCPCS: 36415; 80053; 83615; 85025; 99213; 99214; G0463

== ENCOUNTER 2024-04-18 07:19 | Emergency (ER) | payer MEDICARE, SELFPAY ==
[2024-04-18] VITALS (38 sets, daily range): BP systolic 144–197; BP diastolic 73–92; PULSE 63–74; RESP 16–18; TEMP 36.4; O2SAT 93–100; BMI 24.1
--- OUTSIDE RECORDS SUMMARY | 2024-04-18 07:21 | XMS_ITS | Continuity of Care Document ---
Author Name NwJARREDN User RosyleMN-a llowed Address Unknown Organization Unknown Address Unknown Procedures FILTER APPLIED:Only known Procedures with Onset Date within the last 5 years Procedure Date Procedure Provider Tatum yost Information Status OFFICE O/P EST MOD 30 MIN (42761) Completed PET IMAGE W/CT SKULL-THIGH (00799) Completed SCR MAMMO BI INCL CAD (09215) Completed BREAST TOMOSYNTHESIS BI (84577) Completed DXA BONE DENSITY AXIAL (37293) Completed AUTOMATED RETICULOCYTE COUNT (38852) Completed ANESTH BONE ASPIRATE/BX (66845) Completed COMPLETE CBC W/AUTO DIFF WBC (70935) Completed DX BONE MARROW BX ASPIR (96588) Completed ROUTINE VENIPUNCTURE (43206) Completed OFFICE O/P EST HI 40 MIN (59567) Completed OFFICE O/P EST SF 10 MIN (29368) Completed LACTATE (LD) (LDH) ENZYME (78781) Completed ASSAY OF ERYTHROPOIETIN (80201) Completed OFFICE O/P NEW HI 60 MIN (20434) Completed OFFICE O/P NEW SF 15 MIN (58376) Completed AUTOMATED RETICULOCYTE COUNT (15775) Completed COMPLETE CBC W/AUTO DIFF WBC (66826) Completed ROUTINE VENIPUNCTURE (45802) Completed COMPREHEN METABOLIC PANEL (97876) Completed HEMOGLOBIN (93608) Compl eted PHLEBOTOMY (47194) Compl eted ROUTINE VENIPUNCTURE (34323) Completed JAK2 GENE (98101) Comple fernie HFE GENE (31540) Complet ed HEMOGLOBIN (45929) Compl eted PHLEBOTOMY (86023) Compl eted ASSAY OF FERRITIN (84434) Completed ASSAY OF IRON (98424) Co mpleted IRON BINDING TEST (63956) Completed COMPREHEN METABOLIC PANEL (07926) Completed LIPID PANEL (77748) Comp leted ASSAY THYROID STIM HORMONE (86274) Completed VITAMIN D 25 HYDROXY (88624) Completed MANUAL THERAPY 1/> REGIONS (40038) Completed THERAPEUTIC EXERCISES (32514) Completed PT EVAL MOD COMPLEX 30 MIN (19971) Completed X-RAY EXAM OF PELVIS (19331) Completed X-RAY EXAM L-S SPINE 2/3 VWS (56160) Completed EMERGENCY DEPT VISIT LOW MDM (81483) Completed Encounters FILTER APPLIED:Only known Encounters with Admission Date within the last 5 years Encounter Location Admission Discharge Billing Code [facility]ave [facility] Lacie King Outpatient Velma Gaviria Outpatient Velma Gaviria Outpatient Anni Gaviria Outpatient Monique Parker Outpatient Velma Gaviria Outpatient Vlema Gaviria Outpatient Monique Parker Outpatient Lara garza
--- NOTE | 2024-04-18 07:31 | CRLHL7_ITS ---
For Patients: As a result of the Cures Act, medical imaging exams and procedure reports are released immediately into your electronic medical record. You may view this report before your referring provider. If you have questions, please contact your health care provider. INDICATION: Sudden onset dizziness. COMPARISON: None. TECHNIQUE: CT of the brain / head without intravenous contrast. Multiplanar axial, coronal, and sagittal reformats were reconstructed. FINDINGS: No intracranial hemorrhage. Normal appearance of the white matter. No acute or subacute cortically based infarct. No mass or mass effect. Normal ventricles. No skull fractures. No worrisome focal bone lesion. Mastoids and middle ears are clear. IMPRESSION: Normal head CT. Results called to Dr. Hoover at 7:48 a.m. on 04/18/2024. Please note that all CT scans at this facility use dose modulation, iterative reconstruction, and/or weight-based dosing when appropriate to reduce radiation dose to as low as reasonably achievable. Dictated by Vale Mccauley MD @ 04/18/2024 7:49:41 AM (Electronically Signed)
--- NOTE | 2024-04-18 07:48 | ED_ITS ---
HPI - General Adult General Chief complaint: Dizziness/Vertigo <mAanda Flores MD - Last Filed: 04/18/24 23:57> Stated complaint: dizzy <Amanda Flores MD - Last Filed: 04/18/24 23:57> Time Seen by Provider: 04/18/24 07:30 <Amanda Flores MD - Last Filed: 04/18/24 23:57> Source: patient <Amanda Flores MD - Last Filed: 04/18/24 23:57> Mode of arrival: ambulatory <Amanda Flores MD - Last Filed: 04/18/24 23:57> Limitations: no limitations <Amanda Flores MD - Last Filed: 04/18/24 23:57> History of Present Illness HPI narrative: 78-year-old female self-referred to the emergency department for evaluation of dizziness that started at 5:45 a.m. this morning which is about 90 minutes prior to arrival. No head trauma, no injury. Sensation of room spinning type dizziness that started when she moved her head. No fever, no recent illness. Did not try any interventions prior to coming to ED. No vomiting. No vision changes, difficulty moving her extremities. Symptoms worsen with movement. Does not take anticoagulants. Reports that she had similar symptoms when she had a bladder infection a few years ago. Reports a prior history of TIA as well that I am still getting details on this. Does not appear to take any anticoagulants, does have a history of hypertension. Nonsmoker. Reports a mild achiness in the neck also. Medications reviewed, accurate as listed per nursing team. Multiple allergies noted. ROS notable for the generalized and HEENT symptoms as above, otherwise denies times 12 systems. <Amanda Flores MD - Last Filed: 04/18/24 23:57> Related Data Home medications: Home Medications ?Medication ?Instructions ?Recorded ?Confirmed aspirin 81 mg tablet,delayed 81 mg PO QDAY 02/16/23 04/18/24 release calcium carbonate 600 mg PO BID 02/16/23 04/18/24 glucosamine-chondroitin 250 mg-200 2 tab PO BID 02/16/23 04/18/24 mg tablet (Osteo Bi-Flex) Previous Rx's ?Medication ?Instructions ?Recorded metoprolol succinate 100 mg 100 mg PO QDAY #90 tabs 05/06/23 tablet,extended release 24 hr pravastatin 20 mg tablet 20 mg PO QDAY #90 tabs 05/06/23 amlodipine 2.5 mg tablet 2.5 mg PO QDAY #90 tabs 06/15/23 clindamycin HCl 300 mg capsule 300 mg PO TID #21 caps 04/10/24 hydroxyurea 500 mg capsule (Hydrea) 500 mg PO DAILY #108 caps 04/10/24 alendronate 70 mg tablet 70 mg PO QWEEK #12 tabs 04/11/24 meclizine 25 mg tablet 25 mg PO TID #30 tabs 04/18/24 <Amanda Flores MD - Last Filed: 04/18/24 23:57> Allergies/adverse reactions: Allergies Allergy/AdvReac Type Severity Reaction Status Date / Time erythromycin base Allergy Severe Vomiting Verified 04/18/24 08:03 penicillin G Allergy Severe Convulsions Verified 04/18/24 08:03 hydrochlorothiazide Allergy Intermediate Facial Verified 04/18/24 08:03 Flushing and Edema lisinopril Allergy Intermediate Facial Verified 04/18/24 08:03 Flushing and Edema Sulfa (Sulfonamide Allergy Intermediate Hives Verified 04/18/24 08:03 Antibiotics) sulfamethoxazole Allergy Intermediate Rash Verified 04/18/24 08:03 tetracycline Allergy Intermediate Rash Verified 04/18/24 08:03 <Amanda Flores MD - Last Filed: 04/18/24 23:57> [facility] Medical History: Medical History (Updated 04/18/24 @ 13:50 by Alia Coulter MD) TIA (transient ischemic attack) ?G45.9 - Transient cerebral ischemic attack, unspecified (ICD-10) Strain of lumbar region (~01/2023) ?S39.012A - Strain of muscle, fascia and tendon of lower back, initial encounter (ICD-10) History of adenomatous polyp of colon (2001) ?Z86.010 - Personal history of colonic polyps (ICD-10) Hypercholesterolemia ?E78.00 - Pure hypercholesterolemia, unspecified (ICD-10) Osteoporosis (2020) ?M81.0 - Age-related osteoporosis without current pathological fracture (ICD- 10) Essential hypertension ?I10 - Essential (primary) hypertension (ICD-10) <Amanda Flores MD - Last Filed: 04/18/24 23:57> Surgical History: Surgical History History of lumpectomy of right breast (1968) ?Z98.890 - Other specified postprocedural states (ICD-10) History of colonoscopy (11/25/11) ?Z98.890 - Other specified postprocedural states (ICD-10) History of section (1970) ?Z98.891 - History of uterine scar from previous surgery (ICD-10) History of appendectomy (1962) ?Z90.49 - Acquired absence of other specified parts of digestive tract (ICD- 10) History of benign breast biopsy ?Z98.890 - Other specified postprocedural states (ICD-10) <Amanda Flores MD - Last Filed: 04/18/24 23:57> Family History: Family History Mother COPD (chronic obstructive pulmonary disease) CHF (congestive heart failure) Dementia Father Leukemia Tachycardia Maternal Grandfather Diabetes Myocardial infarction, Onset Age: 63 Brother Retinal dot hemorrhage <Amanda Flores MD - Last Filed: 04/18/24 23:57> Social History: Social History Narrative: , 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, 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 Exercise daily by walking dog 40 minutes Lifetime nonsmoker 1-2 alcoholic drinks a week No drug use What is your current living situation?: I presently have a place to live Problems where you live: declined to answer In the past 12 months, utilities in danger of being shut off: no In past 12 months, lack of transportation kept you from medical appts, meetings, work, or getting things needed for daily living: no In the past 12 mos, have been you worried that your food would run out before you had money to buy more?: never true In the past 12 mos, the food you bought just didn't last and you didn't have money to buy more?: never true Smoking Status: Never smoker Do you use any of these nicotine containing products: None Second hand tobacco smoke exposure: Yes How often do you have a drink containing alcohol: monthly or less How many standard drinks containing alcohol do you have on a typical day: 1 or 2 How often do you have six or more drinks on one occasion: Never AUDIT-C Alcohol total score: 1 Non-prescribed substance use: denies use How often does anyone, including family, friends and others, physically hurt you : never How often does anyone, including family, friends and others, insult or talk down to you: never How often does anyone, including family, friends and others, threaten you with harm: never How often does anyone, including family, friends and others, scream or curse at you: never service: No <Amanda Flores MD - Last Filed: 04/18/24 23:57> Exam Const: Vital Signs, click to edit/add: Vital Signs - 24 hr 04/18/24 07:21 04/18/24 07:21 04/18/24 07:50 Temperature 97.5 F L Pulse Rate Pulse Rate [Pulse Oximeter] 64 63 Respiratory Rate 16 Blood Pressure Blood Pressure [Ri ght Upper Arm] 197/92 H Pulse Oximetry 100 100 Oxygen Delivery Me thod Room Air 04/18/24 08:07 04/18/24 08:12 04/18/24 08:15 Temperature Pulse Rate 65 69 74 Pulse Rate [Pulse Oximeter] Respiratory Rate Blood Pressure 179/81 H Blood Pressure [Ri ght Upper Arm] Pulse Oximetry 100 99 99 Oxygen Delivery Me thod 04/18/24 08:22 04/18/24 08:22 04/18/24 08:30 Temperature Pulse Rate 69 Pulse Rate [Pulse Oximeter] Respiratory Rate Blood Pressure 184/80 H 184/80 H Blood Pressure [Ri ght Upper Arm] Pulse Oximetry 96 Oxygen Delivery Me thod 04/18/24 08:30 04/18/24 08:32 04/18/24 08:33 Temperature Pulse Rate 68 68 Pulse Rate [Pulse Oximeter] Respiratory Rate Blood Pressure 180/78 H Blood Pressure [Ri ght Upper Arm] Pulse Oximetry 98 97 96 Oxygen Delivery Me thod 04/18/24 08:51 04/18/24 08:52 04/18/24 09:00 Temperature Pulse Rate 67 72 68 Pulse Rate [Pulse Oximeter] Respiratory Rate Blood Pressure 167/81 H Blood Pressure [Ri ght Upper Arm] Pulse Oximetry 93 98 98 Oxygen Delivery Me thod 04/18/24 09:02 04/18/24 09:12 04/18/24 09:15 Temperature Pulse Rate 68 69 72 Pulse Rate [Pulse Oximeter] Respiratory Rate Blood Pressure 163/78 H 160/77 H Blood Pressure [Ri ght Upper Arm] Pulse Oximetry 97 95 96 Oxygen Delivery Me thod 04/18/24 09:30 04/18/24 09:32 04/18/24 09:33 Temperature Pulse Rate 66 65 67 Pulse Rate [Pulse Oximeter] Respiratory Rate Blood Pressure 163/73 H Blood Pressure [Ri ght Upper Arm] Pulse Oximetry 97 96 97 Oxygen Delivery Me thod 04/18/24 09:47 04/18/24 10:00 04/18/24 10:02 Temperature Pulse Rate 67 68 65 Pulse Rate [Pulse Oximeter] Respiratory Rate Blood Pressure 164/75 H Blood Pressure [Ri ght Upper Arm] Pulse Oximetry 97 99 99 Oxygen Delivery Me thod 04/18/24 10:15 04/18/24 10:30 04/18/24 10:32 Temperature Pulse Rate 70 64 67 Pulse Rate [Pulse Oximeter] Respiratory Rate Blood Pressure 157/73 H Blood Pressure [Ri ght Upper Arm] Pulse Oximetry 97 98 96 Oxygen Delivery Me thod 04/18/24 10:33 04/18/24 10:45 04/18/24 11:00 Temperature Pulse Rate 66 70 68 Pulse Rate [Pulse Oximeter] Respiratory Rate Blood Pressure Blood Pressure [Ri ght Upper Arm] Pulse Oximetry 99 96 98 Oxygen Delivery Me thod 04/18/24 11:02 04/18/24 11:15 04/18/24 11:30 Temperature Pulse Rate 68 69 65 Pulse Rate [Pulse Oximeter] Respiratory Rate Blood Pressure 161/77 H Blood Pressure [Ri ght Upper Arm] Pulse Oximetry 97 99 98 Oxygen Delivery Me thod 04/18/24 11:32 04/18/24 11:45 04/18/24 12:00 Temperature Pulse Rate 67 66 65 Pulse Rate [Pulse Oximeter] Respiratory Rate Blood Pressure 155/79 H Blood Pressure [Ri ght Upper Arm] Pulse Oximetry 96 98 100 Oxygen Delivery Me thod 04/18/24 12:02 04/18/24 12:03 04/18/24 13:23 Temperature Pulse Rate 65 66 63 Pulse Rate [Pulse Oximeter] Respiratory Rate 16 Blood Pressure 152/79 H 144/85 H Blood Pressure [Ri ght Upper Arm] Pulse Oximetry 99 97 99 Oxygen Delivery Me thod 04/18/24 13:24 04/18/24 13:24 04/18/24 13:59 Temperature 97.6 F Pulse Rate 64 64 Pulse Rate [Pulse Oximeter] 74 Respiratory Rate 16 18 Blood Pressure 144/85 H Blood Pressure [Ri ght Upper Arm] 173/85 H Pulse Oximetry 99 99 98 Oxygen Delivery Me thod Room Air <Amanda Flores MD - Last Filed: 04/18/24 23:57> Vital Signs, click to edit/add: Vital Signs - 24 hr 04/18/24 07:21 04/18/24 07:21 04/18/24 07:50 Temperature 97.5 F L Pulse Rate Pulse Rate [Pulse Oximeter] 64 63 Respiratory Rate 16 Blood Pressure Blood Pressure [Ri ght Upper Arm] 197/92 H Pulse Oximetry 100 100 Oxygen Delivery Me thod Room Air 04/18/24 08:07 04/18/24 08:12 04/18/24 08:15 Temperature Pulse Rate 65 69 74 Pulse Rate [Pulse Oximeter] Respiratory Rate Blood Pressure 179/81 H Blood Pressure [Ri ght Upper Arm] Pulse Oximetry 100 99 99 Oxygen Delivery Me thod 04/18/24 08:22 04/18/24 08:22 04/18/24 08:30 Temperature Pulse Rate 69 Pulse Rate [Pulse Oximeter] Respiratory Rate Blood Pressure 184/80 H 184/80 H Blood Pressure [Ri ght Upper Arm] Pulse Oximetry 96 Oxygen Delivery Me thod 04/18/24 08:30 04/18/24 08:32 04/18/24 08:33 Temperature Pulse Rate 68 68 Pulse Rate [Pulse Oximeter] Respiratory Rate Blood Pressure 180/78 H Blood Pressure [Ri ght Upper Arm] Pulse Oximetry 98 97 96 Oxygen Delivery Me thod 04/18/24 08:51 04/18/24 08:52 04/18/24 09:00 Temperature Pulse Rate 67 72 68 Pulse Rate [Pulse Oximeter] Respiratory Rate Blood Pressure 167/81 H Blood Pressure [Ri ght Upper Arm] Pulse Oximetry 93 98 98 Oxygen Delivery Me thod 04/18/24 09:02 04/18/24 09:12 04/18/24 09:15 Temperature Pulse Rate 68 69 72 Pulse Rate [Pulse Oximeter] Respiratory Rate Blood Pressure 163/78 H 160/77 H Blood Pressure [Ri ght Upper Arm] Pulse Oximetry 97 95 96 Oxygen Delivery Me thod 04/18/24 09:30 04/18/24 09:32 04/18/24 09:33 Temperature Pulse Rate 66 65 67 Pulse Rate [Pulse Oximeter] Respiratory Rate Blood Pressure 163/73 H Blood Pressure [Ri ght Upper Arm] Pulse Oximetry 97 96 97 Oxygen Delivery Me thod 04/18/24 09:47 04/18/24 10:00 04/18/24 10:02 Temperature Pulse Rate 67 68 65 Pulse Rate [Pulse Oximeter] Respiratory Rate Blood Pressure 164/75 H Blood Pressure [Ri ght Upper Arm] Pulse Oximetry 97 99 99 Oxygen Delivery Me thod 04/18/24 10:15 04/18/24 10:30 04/18/24 10:32 Temperature Pulse Rate 70 64 67 Pulse Rate [Pulse Oximeter] Respiratory Rate Blood Pressure 157/73 H Blood Pressure [Ri ght Upper Arm] Pulse Oximetry 97 98 96 Oxygen Delivery Me thod 04/18/24 10:33 04/18/24 10:45 04/18/24 11:00 Temperature Pulse Rate 66 70 68 Pulse Rate [Pulse Oximeter] Respiratory Rate Blood Pressure Blood Pressure [Ri ght Upper Arm] Pulse Oximetry 99 96 98 Oxygen Delivery Me thod 04/18/24 11:02 04/18/24 11:15 04/18/24 11:30 Temperature Pulse Rate 68 69 65 Pulse Rate [Pulse Oximeter] Respiratory Rate Blood Pressure 161/77 H Blood Pressure [Ri ght Upper Arm] Pulse Oximetry 97 99 98 Oxygen Delivery Me thod 04/18/24 11:32 04/18/24 11:45 04/18/24 12:00 Temperature Pulse Rate 67 66 65 Pulse Rate [Pulse Oximeter] Respiratory Rate Blood Pressure 155/79 H Blood Pressure [Ri ght Upper Arm] Pulse Oximetry 96 98 100 Oxygen Delivery Me thod 04/18/24 12:02 04/18/24 12:03 04/18/24 13:23 Temperature Pulse Rate 65 66 63 Pulse Rate [Pulse Oximeter] Respiratory Rate 16 Blood Pressure 152/79 H 144/85 H Blood Pressure [Ri ght Upper Arm] Pulse Oximetry 99 97 99 Oxygen Delivery Me thod 04/18/24 13:24 04/18/24 13:24 04/18/24 13:59 Temperature 97.6 F Pulse Rate 64 64 Pulse Rate [Pulse Oximeter] 74 Respiratory Rate 16 18 Blood Pressure 144/85 H Blood Pressure [Ri ght Upper Arm] 173/85 H Pulse Oximetry 99 99 98 Oxygen Delivery Me thod Room Air <Alia Coulter MD - Last Filed: 04/18/24 13:50> Documenting provider has reviewed patient's vital signs: yes <Amanda Flores MD - Last Filed: 04/18/24 23:57> Common normals: no apparent distress <Amanda Flores MD - Last Filed: 04/18/24 23:57> General appearance: cooperative and well kempt <Amanda Flores MD - Last Filed: 04/18/24 23:57> Other: Answers questions appropriately. Follows commands with no difficulty. <Amanda Flores MD - Last Filed: 04/18/24 23:57> HENMT: Common normals: normocephalic, nasal mucous membranes and turbinates normal, moist oral mucous membranes and oropharynx normal <Amanda Flores MD - Last Filed: 04/18/24 23:57> Head and scalp: normocephalic <Amanda Flores MD - Last Filed: 04/18/24 23:57> Face and sinus: normal facial exam and face symmetric <Amanda Flores MD - Last Filed: 04/18/24 23:57> Nose: nasal mucous membranes and turbinates normal <Amanda Flores MD - Last Filed: 04/18/24 23:57> Mouth: oral and palatal mucosa normal <Amanda Flores MD - Last Filed: 04/18/24 23:57> Throat: posterior oropharynx normal <Amanda Flores MD - Last Filed: 04/18/24 23:57> Eye: Common normals: PERRL, EOMs intact bilaterally and conjunctivae normal <Amanda Flores MD - Last Filed: 04/18/24 23:57> General eye: normal appearance of both eyes <Amanda Flores MD - Last Filed: 04/18/24 23:57> Conjunctiva: conjunctiva(e) normal <MD Wilmer Simons Last Filed: 04/18/24 23:57> Pupil: PERRL <Amanda Flores MD - Last Filed: 04/18/24 23:57> Other: No nystagmus, no reproduction of symptoms with ocular exam. <MD Wilmer Simons Last Filed: 04/18/24 23:57> Neck & C-Spine: Common normals: full ROM, no lymphadenopathy and no meningeal signs <Amanda Flores MD - Last Filed: 04/18/24 23:57> General: normal visual inspection <MD Wilmer Simons Last Filed: 04/18/24 23:57> Resp: Common normals: normal respiratory effort, no use of accessory muscles and clear to auscultation bilaterally <MD Wilmer Simons Last Filed: 04/18/24 23:57> Effort & inspection: able to speak in complete sentences <Amanda Flores MD - Last Filed: 04/18/24 23:57> Auscultation: clear to auscultation bilaterally <MD Wilmer Simons Last Filed: 04/18/24 23:57> Cardio: Common normals: regular rate, regular rhythm, S1 normal heart sound, S2 normal heart sound and no murmurs <MD Wilmer Simons Last Filed: 04/18/24 23:57> Rate: regular rate <MD Wilmer Simons Last Filed: 04/18/24 23:57> Rhythm: regular rhythm <MD Wilmer Simons Last Filed: 04/18/24 23:57> Heart sounds: S1 normal and S2 normal <MD Wilmer Simons Last Filed: 04/18/24 23:57> GI: Common normals: Normal to inspection, nondistended, normoactive bowel sounds present, soft to palpation, non-tender, no hepatosplenomegaly and no masses <MD Wilmer Simons Last Filed: 04/18/24 23:57> Palpation: soft and no hepatosplenomegaly <MD Wilmer Simons Last Filed: 04/18/24 23:57> Back & Pelvis: Common normals: thoracic and lumbar spine normal to inspection <Amanda Flores MD - Last Filed: 04/18/24 23:57> Extremity: Common normals: normal to inspection, full ROM and normal capillary refill <Amanda Flores MD - Last Filed: 04/18/24 23:57> Neuro: Common normals: CN's II-XII intact bilaterally, moves all extremities and no focal motor deficits <MD Wilmer Simons Last Filed: 04/18/24 23:57> Meningeal signs: no meningeal signs <Amanda Flores MD - Last Filed: 04/18/24 23:57> Speech: speech normal <MD Wilmer Simons Last Filed: 04/18/24 23:57> Motor exam: no tremor noted and no movement abnormalities noted <Amanda Flores MD - Last Filed: 04/18/24 23:57> Psych: Common normals: speech normal <MD Wilmer Simons Last Filed: 04/18/24 23:57> Appearance: well kempt <Amanda Flores MD - Last Filed: 04/18/24 23:57> Attitude: engaged <MD Wilmer Simons Last Filed: 04/18/24 23:57> Speech: normal speech <MD Wilmer Simons Last Filed: 04/18/24 23:57> Mood and affect: euthymic mood <MD Wilmer Simons Last Filed: 04/18/24 23:57> Insight: insight good <MD Wilmer Simons Last Filed: 04/18/24 23:57> Judgement: judgment good <MD Wilmer Simons Last Filed: 04/18/24 23:57> Skin: Common normals: no rashes or lesions noted <Amanda Flores MD - Last Filed: 04/18/24 23:57> General skin exam: no rashes or lesions noted <Amanda Flores MD - Last Filed: 04/18/24 23:57> Course Course ED Course: 78-year-old female with sudden onset of vertiginous type dizziness with head movement at 5:45 a.m. this morning. Differential diagnosis including vertigo, TIA, acute illness, electrolyte abnormality, dehydration, amongst others. Patient urgently referred for head CT, code stroke was called. Spoke with Dr. Keith from Neurology, unfortunately he called back even before I was able to do a [place] comprehensive neurological exam. We both agree that on my very limited initial exam before I was pulled out of the room to take the phone call it seems as though this is likely vertigo. Patient is to typically on aspirin as an anti-platelet agent. Blood pressure is a little elevated today. Will obtain urinalysis, flu swabs, typical labs. Head CT. Anticipate hand over to incoming day shift partner. <Amanda Flores MD - Last Filed: 04/18/24 23:57> Reevaluation(s) Time of Reevaluation #1: 08:14 <Alia Coulter MD - Last Filed: 04/18/24 13:50> Reevaluation #1: Did assume care of this patient and went to meet her. She still feels lightheaded sensation her head, has to lie completely still. If she lies completely still does not feeling as bad. She can move arms legs, has no visual changes. She definitely has right beating lateral nystagmus on her examination. She does tell me that she has a history of polycythemia. Did subsequently speak with Stroke Neurology Dr. Hoover at 8:10 a.m.. We reviewed the patient's history. I did review with her that I a.m. sending the patient back to do CT angio of head and neck. We did discuss brain MRI. She is going to try to see the patient in consultation right now. 10:08 a.m.: Have heard back from Neurology. She agrees likely peripheral vertigo but does agree with proceeding with brain MRI. We are awaiting this. Did review the CT angio readings with her. <Alia Coulter MD - Last Filed: 04/18/24 13:50> Time of Reevaluation #2: 11:57 <Alia Coulter MD - Last Filed: 04/18/24 13:50> Reevaluation #2: Patient is feeling much better at this time. She understands that we are awaiting the MRI of her brain to happen just to ensure no central pathology. This likely is benign positional paroxysmal vertigo but will follow through with MR brain imaging as discussed with stroke Neurology. Patient understands and is in agreement with this plan. <Alia Coulter MD - Last Filed: 04/18/24 13:50> Time of Reevaluation #3: 13:46 <Alia Coulter MD - Last Filed: 04/18/24 13:50> Reevaluation #3: Have reviewed with patient that her MRI is not showing any evidence of any acute stroke. We discussed benign positional vertigo to longer-term vertiginous episodes such as labyrinthitis or vestibulitis. We will send in meclizine. She feels good enough to get up and get dressed by herself. Plan will be to discharge to home. We did discuss if ongoing symptoms may need to seek vestibular rehab through physical therapy. <Alia Coulter MD - Last Filed: 04/18/24 13:50> Vital Signs Vital signs: Initial Vital Signs Pulse Rate 64 04/18/24 07:21 Pulse Oximetry 100 04/18/24 07:21 Vital Signs Pulse Rate 64 04/18/24 07:21 Pulse Oximetry 100 04/18/24 07:21 Temperature 97.6 F 04/18/24 13:24 Pulse Rate 74 04/18/24 13:59 Respiratory Rate 18 04/18/24 13:59 Blood Pressure 173/85 H 04/18/24 13:59 Pulse Oximetry 98 04/18/24 13:59 Oxygen Delivery Method Room Air 04/18/24 13:59 <Amanda Flores MD - Last Filed: 04/18/24 23:57> Initial Vital Signs Pulse Rate 64 04/18/24 07:21 Pulse Oximetry 100 04/18/24 07:21 Vital Signs Pulse Rate 64 04/18/24 07:21 Pulse Oximetry 100 04/18/24 07:21 Temperature 97.6 F 04/18/24 13:24 Pulse Rate 74 04/18/24 13:59 Respiratory Rate 18 04/18/24 13:59 Blood Pressure 173/85 H 04/18/24 13:59 Pulse Oximetry 98 04/18/24 13:59 Oxygen Delivery Method Room Air 04/18/24 13:59 <Alia Coulter MD - Last Filed: 04/18/24 13:50> Medications Administered Medications: Discontinued Medications Generic Name Dose Route Start Last Admin Trade Name Freq PRN Reason Stop Dose Admin Sodium Chloride 500 mls @ 500 mls/hr 04/18/24 07:47 04/18/24 10:05 0.9 % Sodium Chloride 500 Ml IV 04/18/24 08:46 Infused .Q1H ONE Infusion Meclizine HCl 25 mg 04/18/24 07:47 04/18/24 08:57 Meclizine Hcl 25 Mg Tablet PO 04/18/24 07:48 25 mg ONCE ONE Administration <Amanda Flores MD - Last Filed: 04/18/24 23:57> Discontinued Medications Generic Name Dose Route Start Last Admin Trade Name Freq PRN Reason Stop Dose Admin Sodium Chloride 500 mls @ 500 mls/hr 04/18/24 07:47 04/18/24 10:05 0.9 % Sodium Chloride 500 Ml IV 04/18/24 08:46 Infused .Q1H ONE Infusion Meclizine HCl 25 mg 04/18/24 07:47 04/18/24 08:57 Meclizine Hcl 25 Mg Tablet PO 04/18/24 07:48 25 mg ONCE ONE Administration <Alia Coulter MD - Last Filed: 04/18/24 13:50> Medical Decision Making Lab Data Lab results reviewed: Yes I reviewed the patient's lab results <Alia Coulter MD - Last Filed: 04/18/24 13:50> Labs: Lab Results 04/18/24 04/18/24 04/18/24 Range/Units 07:31 07:40 07:45 WBC 7.28 (4.50-11.00) K/uL RBC 4.25 (4.00-5.20) m/uL Hgb 14.7 (12.0-16.0) gm/dL Hct 41.5 (33.0-51.0) % MCV 98 (80-100) fL MCH 35 H (26-34) pg MCHC 35 (32-36) gm/dL RDW Coeff of Karina 12.8 (11.5-15.5) % Plt Count 288 (140-440) K/uL Neut % (Auto) 63.7 (42.0-72.0) % Lymph % (Auto) 28.7 (20-44) % [place] % (Auto) 5.8 (0.0-11.0) % Eos % (Auto) 1.2 (0.0-7.0) % Baso % (Auto) 0.5 (0.0-3.0) % Neut # (Auto) 4.63 (1.7-7.0) K/uL Lymph # (Auto) 2.09 (0.90-2.90) K/uL [place] # (Auto) 0.40 (0.00-0.90) K/UL Eos # (Auto) 0.09 (0.00-0.50) K/uL Baso # (Auto) 0.04 (0.00-0.30) K/uL Abs Immat Gran (auto) 0.01 (0.00-0.30) K/uL Imm/Tot Granulo (auto) 0.1 % INR 0.83 L (0.91-1.10) APTT 28 (23-33) Seconds Sodium 136 (135-149) mmol/L Potassium 3.5 L (3.6-5.1) mmol/L Chloride 102 (96-114) mmol/L Carbon Dioxide 26 (20-32) mmol/L Anion Gap 8 (7-15) mEq/L BUN 20 (7-30) mg/dL Creatinine 0.7 (0.5-1.5) mg/dL Estimated Creat Clear 42.39 Estimated GFR 89 ml/min Glucose 109 (60-115) mg/dL Calcium 9.4 (8.4-10.6) mg/dL Magnesium 2.2 (1.5-2.6) mg/dL TSH 2.710 (0.270-4.200) uIU/mL Urine Color (Yellow) Urine Appearance (Clear) Urine pH (5.0-8.5) Ur Specific [place] (1.000-1.030) Urine Protein (Negative) Urine Glucose (UA) (Negative) Urine Ketones (Negative) Urine Blood (Negative) Urine Nitrite (Negative) Urine Bilirubin (Negative) Urine Urobilinogen (0.2-1.0) Ur Leukocyte Esterase (Negative) SARS-CoV-2 (PCR) Negative SARS-CoV-2 (Negative) Influenza Type A (PCR) Negative PCR FLU A (Negative) Influenza Type B (PCR) Negative PCR FLU B (Negative) RSV (PCR) Negative PCR RSV (Negative) POC Troponin I 0.00 L (0.01-0.04) ng/ml 04/18/24 Range/Units 08:50 WBC (4.50-11.00) K/uL RBC (4.00-5.20) m/uL Hgb (12.0-16.0) gm/dL Hct (33.0-51.0) % MCV (80-100) fL MCH (26-34) pg MCHC (32-36) gm/dL RDW Coeff of Karina (11.5-15.5) % Plt Count (140-440) K/uL Neut % (Auto) (42.0-72.0) % Lymph % (Auto) (20-44) % [place] % (Auto) (0.0-11.0) % Eos % (Auto) (0.0-7.0) % Baso % (Auto) (0.0-3.0) % Neut # (Auto) (1.7-7.0) K/uL Lymph # (Auto) (0.90-2.90) K/uL [place] # (Auto) (0.00-0.90) K/UL Eos # (Auto) (0.00-0.50) K/uL Baso # (Auto) (0.00-0.30) K/uL Abs Immat Gran (auto) (0.00-0.30) K/uL Imm/Tot Granulo (auto) % INR (0.91-1.10) APTT (23-33) Seconds Sodium (135-149) mmol/L Potassium (3.6-5.1) mmol/L Chloride (96-114) mmol/L Carbon Dioxide (20-32) mmol/L Anion Gap (7-15) mEq/L BUN (7-30) mg/dL Creatinine (0.5-1.5) mg/dL Estimated Creat Clear Estimated GFR ml/min Glucose (60-115) mg/dL Calcium (8.4-10.6) mg/dL Magnesium (1.5-2.6) mg/dL TSH (0.270-4.200) uIU/mL Urine Color Yellow (Yellow) Urine Appearance Clear (Clear) Urine pH 8.5 (5.0-8.5) Ur Specific [place] 1.015 (1.000-1.030) Urine Protein Negative (Negative) Urine Glucose (UA) Negative (Negative) Urine Ketones Negative (Negative) Urine Blood Negative (Negative) Urine Nitrite Negative (Negative) Urine Bilirubin Negative (Negative) Urine Urobilinogen 0.2 (0.2-1.0) Ur Leukocyte Esterase Negative (Negative) SARS-CoV-2 (PCR) (Negative) Influenza Type A (PCR) (Negative) Influenza Type B (PCR) (Negative) RSV (PCR) (Negative) POC Troponin I (0.01-0.04) ng/ml <Amanda Flores MD - Last Filed: 04/18/24 23:57> Lab Results 04/18/24 04/18/24 04/18/24 Range/Units 07:31 07:40 07:45 WBC 7.28 (4.50-11.00) K/uL RBC 4.25 (4.00-5.20) m/uL Hgb 14.7 (12.0-16.0) gm/dL Hct 41.5 (33.0-51.0) % MCV 98 (80-100) fL MCH 35 H (26-34) pg MCHC 35 (32-36) gm/dL RDW Coeff of Karina 12.8 (11.5-15.5) % Plt Count 288 (140-440) K/uL Neut % (Auto) 63.7 (42.0-72.0) % Lymph % (Auto) 28.7 (20-44) % [place] % (Auto) 5.8 (0.0-11.0) % Eos % (Auto) 1.2 (0.0-7.0) % Baso % (Auto) 0.5 (0.0-3.0) % Neut # (Auto) 4.63 (1.7-7.0) K/uL Lymph # (Auto) 2.09 (0.90-2.90) K/uL [place] # (Auto) 0.40 (0.00-0.90) K/UL Eos # (Auto) 0.09 (0.00-0.50) K/uL Baso # (Auto) 0.04 (0.00-0.30) K/uL Abs Immat Gran (auto) 0.01 (0.00-0.30) K/uL Imm/Tot Granulo (auto) 0.1 % INR 0.83 L (0.91-1.10) APTT 28 (23-33) Seconds Sodium 136 (135-149) mmol/L Potassium 3.5 L (3.6-5.1) mmol/L Chloride 102 (96-114) mmol/L Carbon Dioxide 26 (20-32) mmol/L Anion Gap 8 (7-15) mEq/L BUN 20 (7-30) mg/dL Creatinine 0.7 (0.5-1.5) mg/dL Estimated Creat Clear 42.39 Estimated GFR 89 ml/min Glucose 109 (60-115) mg/dL Calcium 9.4 (8.4-10.6) mg/dL Magnesium 2.2 (1.5-2.6) mg/dL TSH 2.710 (0.270-4.200) uIU/mL Urine Color (Yellow) Urine Appearance (Clear) Urine pH (5.0-8.5) Ur Specific [place] (1.000-1.030) Urine Protein (Negative) Urine Glucose (UA) (Negative) Urine Ketones (Negative) Urine Blood (Negative) Urine Nitrite (Negative) Urine Bilirubin (Negative) Urine Urobilinogen (0.2-1.0) Ur Leukocyte Esterase (Negative) SARS-CoV-2 (PCR) Negative SARS-CoV-2 (Negative) Influenza Type A (PCR) Negative PCR FLU A (Negative) Influenza Type B (PCR) Negative PCR FLU B (Negative) RSV (PCR) Negative PCR RSV (Negative) POC Troponin I 0.00 L (0.01-0.04) ng/ml 04/18/24 Range/Units 08:50 WBC (4.50-11.00) K/uL RBC (4.00-5.20) m/uL Hgb (12.0-16.0) gm/dL Hct (33.0-51.0) % MCV (80-100) fL MCH (26-34) pg MCHC (32-36) gm/dL RDW Coeff of Karina (11.5-15.5) % Plt Count (140-440) K/uL Neut % (Auto) (42.0-72.0) % Lymph % (Auto) (20-44) % [place] % (Auto) (0.0-11.0) % Eos % (Auto) (0.0-7.0) % Baso % (Auto) (0.0-3.0) % Neut # (Auto) (1.7-7.0) K/uL Lymph # (Auto) (0.90-2.90) K/uL [place] # (Auto) (0.00-0.90) K/UL Eos # (Auto) (0.00-0.50) K/uL Baso # (Auto) (0.00-0.30) K/uL Abs Immat Gran (auto) (0.00-0.30) K/uL Imm/Tot Granulo (auto) % INR (0.91-1.10) APTT (23-33) Seconds Sodium (135-149) mmol/L Potassium (3.6-5.1) mmol/L Chloride (96-114) mmol/L Carbon Dioxide (20-32) mmol/L Anion Gap (7-15) mEq/L BUN (7-30) mg/dL Creatinine (0.5-1.5) mg/dL Estimated Creat Clear Estimated GFR ml/min Glucose (60-115) mg/dL Calcium (8.4-10.6) mg/dL Magnesium (1.5-2.6) mg/dL TSH (0.270-4.200) uIU/mL Urine Color Yellow (Yellow) Urine Appearance Clear (Clear) Urine pH 8.5 (5.0-8.5) Ur Specific [place] 1.015 (1.000-1.030) Urine Protein Negative (Negative) Urine Glucose (UA) Negative (Negative) Urine Ketones Negative (Negative) Urine Blood Negative (Negative) Urine Nitrite Negative (Negative) Urine Bilirubin Negative (Negative) Urine Urobilinogen 0.2 (0.2-1.0) Ur Leukocyte Esterase Negative (Negative) SARS-CoV-2 (PCR) (Negative) Influenza Type A (PCR) (Negative) Influenza Type B (PCR) (Negative) RSV (PCR) (Negative) POC Troponin I (0.01-0.04) ng/ml <Alia Coulter MD - Last Filed: 04/18/24 13:50> Imaging Data CT scan - head: Attestation: I have reviewed the pertinent imaging results. <Amanda Flores MD - Last Filed: 04/18/24 23:57> My impression: Normal head CT <Amanda Flores MD - Last Filed: 04/18/24 23:57> Radiologist's impression: IMPRESSION: Normal head CT. Results called to Dr. Hoover at 7:48 a.m. on 04/18/2024. Please note that all CT scans at this facility use dose modulation, iterative reconstruction, and/or weight-based dosing when appropriate to reduce radiation dose to as low as reasonably achievable. Dictated by Vale Mccauley MD @ 04/18/2024 7:49:41 AM <Amanda Flores MD - Last Filed: 04/18/24 23:57> CT- Other: Attestation: I have reviewed the pertinent imaging results. <Alia Miner MD - Last Filed: 04/18/24 13:50> Radiologist's impression: Patient: JENNIFER LESTER Facility:?[facility] Patient ID:?[id number] Site Patient ID:?[id number]. Site :?1945 Study:?CT-Head Angio-04/18/2024 8:49:19 AM Ordering Physician:Paul Rojo Preliminary Report: Prelim: CTA Head: 1. No intracranial large vessel occlusion or critical stenosis. CTA NECK: 1. No hemodynamically significant stenosis or dissection in the neck. Dictated by Rocio Richards MD @ 04/18/2024 8:58:16 AM Read by:?Rocio Richards MD @04/18/2024 8:58:23 AM <Alia Coulter MD - Last Filed: 04/18/24 13:50> MRI - head: Attestation: I have reviewed the pertinent imaging results. <Alia Miner MD - Last Filed: 04/18/24 13:50> Radiologist's impression: Patient: JENNIFER LESTER Facility:?[facility] Patient ID:?[id number] Site Patient ID:?[id number]. Site :?1945 Study:?MRI-Head W/O-04/18/2024 1:20:12 PM Ordering Physician:Paul Rojo Final Report: Indication: Vertigo. Technique: Multiplanar, multisequence MRI of the brain was performed without intravenous contrast. Comparison: CT head 04/18/2024. Findings: The corpus callosum, optic chiasm, pituitary gland, clivus, brainstem and the corpus callosum, pituitary gland clivus appear intact. Mild degenerative change visualized upper cervical spine. There is no restricted diffusion. No intracranial hemorrhage. The ventricles are proportionate to the cerebral sulci. The 4th ventricle appears midline. The basal cisterns appear patent. No abnormal extra-axial fluid collection identified. Mild parenchymal volume loss. Scattered T2 FLAIR hyperintense foci within the subcortical and periventricular white matter, favored to represent chronic ischemic microvascular disease. There is no intracranial mass, abnormal mass-effect or midline shift identified. Major intracranial vascular flow voids appear grossly intact. Both globes are preserved. Impression: 1. No acute/subacute infarct. 2. Mild chronic ischemic microvascular disease. Dictated by Haresh Pavon MD @ 04/18/2024 1:33:23 PM (Electronic Signature) <Alia Coulter MD - Last Filed: 04/18/24 13:50> ECG Data Attestation: I personally reviewed and interpreted this ECG as follows: (Normal sinus rhythm, 68 beats per minute. Voltage criteria for LVH, no arrhythmia, no ischemic change or infarct noted.) <Alia Coulter MD - Last Filed: 04/18/24 13:50> Prior ECG tracings: not available for review <Alia Coulter MD - Last Filed: 04/18/24 13:50> Discharge Plan Discharge Clinical Impression: Vertigo <Amanda Flores MD - Last Filed: 04/18/24 23:57> Patient Disposition: Home, Self-Care <Amanda Flores MD - Last Filed: 04/18/24 23:57> Condition: Stable <Amanda Flores MD - Last Filed: 04/18/24 23:57> Instructions: Vertigo (ED) <Amanda Flores MD - Last Filed: 04/18/24 23:57> Additional Instructions: Take the meclizine as prescribed. If you have ongoing symptoms beyond a week, please follow up in clinic. You may need to seek the assistance of physical therapy for vestibular rehab with ongoing symptoms. Take position changes very slowly, try to fix your gaze on an object when making these position changes, can help minimize symptoms. <Amanda Flores MD - Last Filed: 04/18/24 23:57> Activity Level: Activity as Tolerated <Amanda Flores MD - Last Filed: 04/18/24 23:57> Activity as Tolerated <Alia Coulter MD - Last Filed: 04/18/24 13:50> Prescriptions: New meclizine 25 mg tablet 25 mg PO TID Qty: 30 0RF No Action aspirin 81 mg tablet,delayed release (DR/EC) 81 mg PO QDAY glucosamine-chondroitin [Osteo Bi-Flex] 250-200 mg tablet 2 tab PO BID Rx Instructions: give after food/meal calcium carbonate 600 mg calcium (1,500 mg) tablet 600 mg PO BID metoprolol succinate 100 mg tablet extended release 24 hr 100 mg PO QDAY Qty: 90 3RF pravastatin 20 mg tablet 20 mg PO QDAY Qty: 90 3RF amlodipine 2.5 mg tablet 2.5 mg PO QDAY Qty: 90 3RF clindamycin HCl 300 mg capsule 300 mg PO TID Qty: 21 0RF hydroxyurea [Hydrea] 500 mg capsule 500 mg PO DAILY Qty: 108 3RF Rx Instructions: Take 1 capsule daily for 5 days and 2 capsules on Wednesday/. alendronate 70 mg tablet 70 mg PO QWEEK Qty: 12 0RF <Amanda Flores MD - Last Filed: 04/18/24 23:57> Follow Up/Referrals: Anni Gaviria MD [Primary Care Provider] - <Amanda Flores MD - Last Filed: 04/18/24 23:57> Stand Alone Forms: MyHealth Info Instructions <Amanda Flores MD - Last Filed: 04/18/24 23:57>
--- NOTE | 2024-04-18 08:07 | CT_ITS ---
Patient: JENNIFER LESTER Facility:?[facility] Patient ID:?[id number] Site Patient ID:?[id number]. Site :?1945 Study:?CT-Neck Angio-04/18/2024 8:49:19 AM Ordering Physician:Paul Rojo Final Report: INDICATION: Vertigo. TECHNIQUE: CTA neck with contrast bolus tracking, 3D angiographic rendering using maximum intensity projection (MIP) and images permanently archived. FINDINGS: There is no significant carotid artery stenosis or dissection. There is no significant vertebral artery stenosis or dissection. The soft tissues of the neck are within normal limits. The cervical spine is in normal alignment. Degenerative changes are noted in the cervical spine. IMPRESSION: No significant carotid or vertebral artery stenosis or dissection. Please note that all CT scans at this facility use dose modulation, iterative reconstruction, and/or weight-based dosing when appropriate to reduce radiation dose to as low as reasonably achievable. Dictated by Shivam Jones MD @ 04/18/2024 11:35:51 AM Signed by:?Shivam Jones MD @04/18/2024 11:35:51 AM (Electronic Signature)
[2024-04-18 08:18] LABS: Basophils Absolute Auto 0.04 K/uL (0.00-0.30); Basophils Percent Auto 0.5 % (0.0-3.0); Eosinophils Absolute Auto 0.09 K/uL (0.00-0.50); Eosinophils Percent Auto 1.2 % (0.0-7.0); Hematocrit 41.5 % (33.0-51.0); Hemoglobin* 14.7 gm/dL (12.0-16.0); Immature Granulocytes Abs Auto 0.01 K/uL (0.00-0.30); Immature Granulocytes Pct Auto 0.1 %; Lymphocytes Absolute Auto 2.09 K/uL (0.90-2.90); Lymphocytes Percent Auto 28.7 % (20-44); Mean Corpuscular HGB Conc 35 gm/dL (32-36); Mean Corpuscular Hemoglobin 35 pg (26-34); Mean Corpuscular Volume 98 fL (80-100); Monocytes Percent Auto 5.8 % (0.0-11.0); Neutrophils Absolute Auto 4.63 K/uL (1.7-7.0); Neutrophils Percent Auto 63.7 % (42.0-72.0); Platelet Count* 288 K/uL (140-440); RDW Coefficient of Variation % 12.8 % (11.5-15.5); Red Blood Count 4.25 m/uL (4.00-5.20); White Blood Count* 7.28 K/uL (4.50-11.00)
[2024-04-18 08:18] LABS: PCR FLU A Negative PCR FLU A (Negative); PCR FLU B Negative PCR FLU B (Negative); PCR RSV Negative PCR RSV (Negative); SARS PCR* Negative SARS-CoV-2 (Negative)
[2024-04-18 08:20] LABS: INR 0.83 (0.91-1.10); Prothrombin Time 11.9 Seconds
[2024-04-18 08:21] LABS: Chloride* 102 mmol/L (96-114); Partial Thromboplastin Time* 28 Seconds (23-33); Potassium* 3.5 mmol/L (3.6-5.1); Sodium* 136 mmol/L (135-149)
[2024-04-18 08:22] LABS: Slide Review Reflex No
[2024-04-18 08:24] LABS: Anion Gap 8 mEq/L (7-15); Blood Urea Nitrogen* 20 mg/dL (7-30); Calcium* 9.4 mg/dL (8.4-10.6); Carbon Dioxide* 26 mmol/L (20-32); Creatinine* 0.7 mg/dL (0.5-1.5); Est. Creatinine Clearance* 42.39; Estimated Glomerular Filt Rate 89 ml/min; Glucose* 109 mg/dL (60-115)
[2024-04-18 08:25] LABS: Magnesium* 2.2 mg/dL (1.5-2.6)
[2024-04-18 08:57] LABS: Appearance Urine Clear (Clear); Bilirubin Urine Negative (Negative); Blood Urine Negative (Negative); Color Urine Yellow (Yellow); Glucose Urine Negative (Negative); Ketones Urine Negative (Negative); Leukocyte Esterase Urine Negative (Negative); Nitrite Urine Negative (Negative); Protein Urine Negative (Negative); Specific Gravity Urine 1.015 (1.000-1.030); Urobilinogen Urine 0.2 (0.2-1.0); pH Urine 8.5 (5.0-8.5)
[2024-04-18] MEDS: MECLIZINE HCL 25 MG TABLET PO (08:57)
[2024-04-18] MEDS: 0.9 % SODIUM CHLORIDE 500 ML 500 ML IV (08:57)
--- NOTE | 2024-04-18 10:48 | CRLHL7_ITS ---
For Patients: As a result of the Cures Act, medical imaging exams and procedure reports are released immediately into your electronic medical record. You may view this report before your referring provider. If you have questions, please contact your health care provider. Indication: Vertigo. Technique: Multiplanar, multisequence MRI of the brain was performed without intravenous contrast. Comparison: CT head 04/18/2024. Findings: The corpus callosum, optic chiasm, pituitary gland, clivus, brainstem and the corpus callosum, pituitary gland clivus appear intact. Mild degenerative change visualized upper cervical spine. There is no restricted diffusion. No intracranial hemorrhage. The ventricles are proportionate to the cerebral sulci. The 4th ventricle appears midline. The basal cisterns appear patent. No abnormal extra-axial fluid collection identified. Mild parenchymal volume loss. Scattered T2 FLAIR hyperintense foci within the subcortical and periventricular white matter, favored to represent chronic ischemic microvascular disease. There is no intracranial mass, abnormal mass-effect or midline shift identified. Major intracranial vascular flow voids appear grossly intact. Both globes are preserved. Impression: 1. No acute/subacute infarct. 2. Mild chronic ischemic microvascular disease. Dictated by Haresh Pavon MD @ 04/18/2024 1:33:23 PM (Electronically Signed)
== END 2024-04-18 14:02 | disposition home or self-care (01) ==
PROVIDERS: Family Medicine; Emergency Provider Family Medicine; PCP Family Medicine
DX: R42 Dizziness and giddiness (principal); Z79.82 Long term (current) use of aspirin
CPT/HCPCS: 36415; 70450; 70496; 70498; 70551; 80048; 81003; 83735; 84443; 84484; 85025; 85610; 85730; 87631; 93005; 94761; 99284; 99291; A9270; J7030; Q9967

== ENCOUNTER 2024-05-15 07:55 | Outpatient (CLI) | payer MEDICARE, SELFPAY | END 2024-05-15 07:56 | disposition home or self-care (01) | LOC: NFLDREF 05-17 06:32 | PROVIDERS: PCP Family Medicine; Referring Provider Family Medicine; Visit Provider Family Medicine | DX: D45 Polycythemia vera (principal); E78.00 Pure hypercholesterolemia, unspecified; M81.0 Age-related osteoporosis without current pathological fracture; E78.5 Hyperlipidemia, unspecified | CPT/HCPCS: 80053; 80061; 82306 ==

== ENCOUNTER 2024-05-22 13:16 | Outpatient (CLI) | payer MEDICARE, SELFPAY ==
--- NOTE | 2024-05-22 13:40 | CRLHL7_ITS ---
For Patients: As a result of the Century Cures Act, medical imaging exams and procedure reports are released immediately into your electronic medical record. You may view this report before your referring provider. If you have questions, please contact your health care provider. BILATERAL SCREENING MAMMOGRAM WITH COMPUTER-AIDED DETECTION AND TOMOSYNTHESIS TECHNIQUE: CC and MLO views were obtained. These mammographic images have been obtained using full-field digital technique. These mammographic images were interpreted with the benefit of computer-aided detection. Breast Tomosynthesis was used in this interpretation. COMPARISON FILM: 05/19/23. FINDINGS: There are scattered areas of fibroglandular density. IMPRESSION: There is no radiographic evidence for malignancy. ASSESSMENT: BI-RADS Category 1: Negative RECOMMENDATION: Routine screening mammogram in 1 year. A lay language report of this examination will be provided to the patient. Juan Chavis M.D. Diagnostic Radiologist [email or web address] SP/Dictated by: Juan Chavis MD @ 05/24/2024 12:25:00 PM (Electronically Signed)
== END 2024-05-22 13:17 | disposition home or self-care (01) ==
LOC: MAMMO 13:16
PROVIDERS: PCP Family Medicine; Visit Provider Family Medicine
DX: Z12.31 Encounter for screening mammogram for malignant neoplasm of breast (principal)
CPT/HCPCS: 77063; 77067

== ENCOUNTER 2024-10-16 13:00 | Outpatient (RCR) | payer MEDICARE, SELFPAY ==
[2024-07-10 09:37] LABS: Hematocrit* 39.5 % (33.0-51.0); Hemoglobin* 13.7 gm/dL (12.0-16.0); Immature Granulocytes Abs Auto 0.02 K/uL (0.00-0.30); Immature Granulocytes Pct Auto 0.3 %; Lymphocytes Absolute Auto 2.29 K/uL (0.90-2.90); Mean Corpuscular HGB Conc 35 gm/dL (32-36); Mean Corpuscular Hemoglobin 35 pg (26-34); Mean Corpuscular Volume 101 fL (80-100); RDW Coefficient of Variation % 12.7 % (11.5-15.5); Red Blood Count* 3.92 m/uL (4.00-5.20); White Blood Count* 7.51 K/uL (4.50-11.00)
[2024-07-10 10:00] LABS: Slide Review Reflex No
[2024-10-16 13:12] LABS: Hematocrit* 38.9 % (33.0-51.0); Hemoglobin* 13.5 gm/dL (12.0-16.0); Immature Granulocytes Abs Auto 0.02 K/uL (0.00-0.30); Immature Granulocytes Pct Auto 0.3 %; Lymphocytes Absolute Auto 2.37 K/uL (0.90-2.90); Mean Corpuscular HGB Conc 35 gm/dL (32-36); Mean Corpuscular Hemoglobin 35 pg (26-34); Mean Corpuscular Volume 100 fL (80-100); RDW Coefficient of Variation % 12.7 % (11.5-15.5); Red Blood Count* 3.90 m/uL (4.00-5.20); White Blood Count* 7.50 K/uL (4.50-11.00)
[2024-10-16 13:13] LABS: Slide Review Reflex No
[2024-10-16 13:28] LABS: Albumin* 4.4 g/dL (3.3-5.0); Chloride* 100 mmol/L (96-114); Sodium* 135 mmol/L (135-149)
[2024-10-16 13:29] LABS: Potassium* 4.3 mmol/L (3.6-5.1)
[2024-10-16 13:31] LABS: Alanine Aminotransferase* 15 U/L (4-35); Alkaline Phosphatase* 70 U/L (40-150); Anion Gap 3 mEq/L (7-15); Aspartate Amino Transferase* 29 U/L (12-35); Bilirubin Total* 0.4 mg/dL (0.1-1.5); Blood Urea Nitrogen* 22 mg/dL (7-30); Carbon Dioxide* 32 mmol/L (20-32); Creatinine* 0.8 mg/dL (0.5-1.5); Estimated Glomerular Filt Rate 76 ml/min; Total Protein* 6.7 g/dL (6.0-8.3)
[2024-10-16 13:32] LABS: Calcium* 9.5 mg/dL (8.4-10.6); Glucose* 128 mg/dL (60-115)
== END 2025-01-06 23:59 | disposition home or self-care (01) ==
LOC: CCIC 13:00
PROVIDERS: PCP Family Medicine; Referring Provider Family Medicine; Visit Provider Internal Medicine Hematology & Oncology
DX: D45 Polycythemia vera (principal); Z79.82 Long term (current) use of aspirin; Z86.73 Personal history of transient ischemic attack (TIA), and cerebral infarction without residual deficits; I10 Essential (primary) hypertension
CPT/HCPCS: 36415; 80053; 83615; 85025; 99213; 99214; G0463